=== PATIENT | male | born 1955 | race Caucasian/White ===

== ENCOUNTER 2017-12-09 02:08 | Inpatient (IN) ==
[2017-12-09] MEDS ORDERED: Ipratropium/Albuterol Neb 3 ML IH ONE (02:11)
[2017-12-09] MEDS ORDERED: methylPREDNISolone 125 MG/2 ML VIAL IVP ONE (02:11)
--- NOTE | 2017-12-09 02:12 | Emergency Department Note ---
Disposition Clinical Impression: Hypoxia Pneumonia Qualifiers: Pneumonia type: due to unspecified organism Laterality: unspecified laterality Lung location: unspecified part of lung Qualified Code(s): J18.9 - Pneumonia, unspecified organism Disposition: Admitted As Inpatient Condition: Good Referrals: NONE,PCP [Non-Partnered Physician] - Forms: ED Satisfaction Letter Time of Disposition: 03:44 General Adult HPI - General Chief complaint: ED Shortness of Breath/Dyspnea Stated complaint: annemarie Time Seen by Provider: 12/09/17 02:10 Source: patient, EMS Mode of arrival: EMS Limitations: no limitations Nursing Notes Reviewed: Yes Vital Signs Reviewed: Yes - History of Present Illness HPI Narrative: 62-year-old male with significant past medical history of COPD presenting to the emergency department with chief complaint of increased shortness of breath and cough. Patient states since he been having increasing shortness of breath. Nonproductive cough. No fevers. Denies chest pain at this time. Denies nausea, vomiting or abdominal pain. Does disclose possible sick contact with influenza. According to EMS arrived they placed him on oxygen. On arrival patient was 88% on 3 L nasal cannula. - Related Data Allergies Allergy/AdvReac Type Severity Reaction Status Date / Time No Known Allergies Allergy Verified 08/26/16 18:11 All systems ED: reviewed and negative except as stated. Respiratory: Reports: cough, dyspnea Past Medical History - Past Medical History Attestation: Yes The following information was validated with the patient. Medical history: Reports: diabetes, hypertension, other Psychiatric history: Reports: no psych history - Social History Smoking Status: Current every day smoker Smokeless Tobacco Status: No Alcohol use: Reports: none Drug use: Reports: none Physical Exam - General Limitations: no limitations General appearance: alert, in no apparent distress - Head Head exam: atraumatic, normocephalic, normal inspection - Eye Eye exam: Present: normal appearance. Absent: scleral icterus, conjunctival injection - ENT ENT exam: normal exam, normal oropharynx, mucous membranes moist - Neck Neck exam: Present: normal inspection, full ROM. Absent: tenderness, meningismus - Chest Chest inspection: Present: normal inspection, symmetric chest wall rise. Absent : tenderness, rash - Respiratory Respiratory exam: Present: other (Diffuse rhonchi on examination) - Cardiovascular Cardiovascular exam: Present: regular rate, normal rhythm, normal heart sounds - Abdominal Exam Abdominal exam: Present: soft, Non-Tender. Absent: distention, guarding, rebound - Extremities Exam Extremities exam: Present: normal inspection, full ROM - Neurological Exam Neurological exam: Present: alert, oriented X3 - Psychiatric Psychiatric exam: Present: normal affect, normal mood - Skin Skin exam: Present: warm, intact Course Course Narrative: 62-year-old male presenting with shortness of breath and dyspnea. Patient was 80% on 3 L nasal cannula. Mid 90%. On 4 L nasal cannula. We will obtain basic laboratory analysis along with chest x-ray. We will provide the patient with steroids and breathing treatments. Patient is alert and oriented times in the room. Mildly hypoxic but other vital signs stable. Disposition pending results. Patient agrees with this plan. - Reevaluation(s) Reevaluation #1: Patient's laboratory analysis showed increased creatinine, elevated BNP, elevated troponin. Troponin chest chest x-ray does show multifocal pneumonia. Zithromax and Levaquin at this time. We will plan to admit the patient for pneumonia and hypoxia. Patient is alert and oriented 3 with stable vital signs. He agrees. I spoke with the hospitalist supervisor mold construction Dr. Reece who agrees to accept the patient at this time. He would like a CT non contrast of the chest before the patient is brought to the floor. Patient agrees with this plan. Vital Signs Temperature 99.9 F H 12/09/17 02:10 Pulse Rate 72 12/09/17 02:10 Respiratory Rate 18 12/09/17 02:10 Blood Pressure 216/113 12/09/17 02:10 O2 Sat by Pulse Oximetry 94 12/09/17 02:10 Temperature 99.9 F H 12/09/17 02:10 Pulse Rate 76 12/09/17 03:25 Respiratory Rate 18 12/09/17 03:25 Blood Pressure 209/96 12/09/17 03:25 O2 Sat by Pulse Oximetry 95 12/09/17 03:25 Oxygen Delivery Oxygen Delivery Nasal Cannula Medical Decision Making - Lab Data Result diagrams: 12/09/17 02:30 12/09/17 02:30 Lab Results 12/09/17 12/09/17 12/09/17 Range/Units 02:30 02:30 02:30 WBC 8.5 (4.3-11.1) K/mcL RBC 4.26 (4.19-5.50) M/mcL Hgb 11.1 L (12.9-16.9) g/dL Hct 36.1 L (37.5-50.1) % MCV 84.7 (83.0-100.0) fL MCH 26.1 L (28.0-33.3) pg MCHC 30.7 L (31.6-35.5) g/dL RDW 17.3 H (11.5-14.5) % Plt Count 211 (140-400) K/mcL MPV 10.4 (9.4-12.4) fL Immature Gran % 0.6 (0-4) % Seg Neutrophils % 82.3 % Lymphocytes % 12.3 % Monocytes % 4.7 % Eosinophils % 0.0 % Basophils % 0.1 % Neutrophils # 7.0 (1.6-8.9) K/mcL Lymphocytes # 1.0 (0.6-4.6) K/mcL Monocytes # 0.4 (0.0-1.3) K/mcL Eosinophils # 0.0 (0.0-0.6) K/mcL Basophils # 0.0 (0.0-0.2) K/mcL Sodium 137 (136-145) mEq/L Potassium 3.4 L (3.5-5.1) mEq/L Chloride 102 (98-107) mEq/L Carbon Dioxide 28 (23-29) mEq/L BUN 21 (8-23) mg/dL Creatinine 1.45 H (0.70-1.30) mg/dL Est GFR ( Amer) 60 (> 60) Est GFR (Non-Af Amer) 49 L (> 60) BUN/Creatinine Ratio 14 (6-26) Glucose 131 H (70-105) mg/dL Calculated Osmolality 289 (280-300) Lactic Acid 0.9 (0.5-2.2) mmol/L Calcium 9.2 (8.6-10.3) mg/dL Troponin I 0.05 H* (< 0.04) ng/mL B-Natriuretic Peptide (Less than 100) pg/mL 12/09/17 Range/Units 02:30 WBC (4.3-11.1) K/mcL RBC (4.19-5.50) M/mcL Hgb (12.9-16.9) g/dL Hct (37.5-50.1) % MCV (83.0-100.0) fL MCH (28.0-33.3) pg MCHC (31.6-35.5) g/dL RDW (11.5-14.5) % Plt Count (140-400) K/mcL MPV (9.4-12.4) fL Immature Gran % (0-4) % Seg Neutrophils % % Lymphocytes % % Monocytes % % Eosinophils % % Basophils % % Neutrophils # (1.6-8.9) K/mcL Lymphocytes # (0.6-4.6) K/mcL Monocytes # (0.0-1.3) K/mcL Eosinophils # (0.0-0.6) K/mcL Basophils # (0.0-0.2) K/mcL Sodium (136-145) mEq/L Potassium (3.5-5.1) mEq/L Chloride (98-107) mEq/L Carbon Dioxide (23-29) mEq/L BUN (8-23) mg/dL Creatinine (0.70-1.30) mg/dL Est GFR ( Amer) (> 60) Est GFR (Non-Af Amer) (> 60) BUN/Creatinine Ratio (6-26) Glucose (70-105) mg/dL Calculated Osmolality (280-300) Lactic Acid (0.5-2.2) mmol/L Calcium (8.6-10.3) mg/dL Troponin I (< 0.04) ng/mL B-Natriuretic Peptide 695 H (Less than 100) pg/mL - EKG Data EKG #1 EKG attestation: Yes I reviewed and interpreted this EKG. EKG results narrative: Sinus rhythm. Left axis deviation. 71 bpm. GA interval 160, QRS 118, QTC 426. T-wave inversion in V5 and V6. No signs of acute ST segment elevation or ischemia. Compared to previous EKG completed on 12/30/2008 no significant changes noted
[2017-12-09] MEDS ORDERED: Levofloxacin 750 MG/150 ML 750 MG/150 ML BAG IVPB ONE (02:49)
[2017-12-09] MEDS ORDERED: Azithromycin 500 MG in D5% in Water 250 ML IVPB ONE (02:49)
[2017-12-09] MEDS ORDERED: *HR* Metoprolol 5 MG/5 ML VIAL IVP ONE (02:51)
[2017-12-09 02:52] LABS: Basophils % 0.1 %; Hematocrit 36.1 % (37.5-50.1); Hemoglobin 11.1 g/dL (12.9-16.9); Immature Granulocytes % 0.6 % (0-4); Lymphocytes % 12.3 %; Mean Corpuscular HGB Conc 30.7 g/dL (31.6-35.5); Mean Corpuscular Hemoglobin 26.1 pg (28.0-33.3); Mean Corpuscular Volume 84.7 fL (83.0-100.0); Mean Platelet Volume 10.4 fL (9.4-12.4); Monocytes # 0.4 K/mcL (0.0-1.3); Monocytes % 4.7 %; Platelet Count 211 K/mcL (140-400); Red Blood Count 4.26 M/mcL (4.19-5.50); Red Cell Distribution Width 17.3 % (11.5-14.5); Segmented Neutrophils % 82.3 %
--- NOTE | 2017-12-09 02:54 | Emergency Department Note ---
START Narrative - START START: I examined this patient and my medical decision-making was reviewed with the Resident Physician. I agree with the documented findings, disposition and treatment plan as described except to the extent set forth below. 62 year old male presents to the ED with hx of COPD and states that he has been exposed to the infleunza and has been experincing increased cough and subjective chills and fevers at home. He was 88% on 3LNC and now 100% on 4LNC and brething treatment have been given with steroids. He has mulitfocal pnuemoina on CXR. WE will test him for influenze and admit to medicine.
[2017-12-09 03:14] LABS: Calcium 9.2 mg/dL (8.6-10.3); Potassium 3.4 mEq/L (3.5-5.1)
[2017-12-09 03:16] LABS: Troponin I 0.05 ng/mL (< 0.04)
[2017-12-09] MEDS ORDERED: Aspirin 325 MG TABLET PO ONE (03:16)
[2017-12-09] MEDS ORDERED: 0.9 % Sodium Chloride 500 ML IVC ONE (03:22)
[2017-12-09] MEDS ORDERED: Acetaminophen 325 MG TABLET PO PRN (04:06)
[2017-12-09] MEDS ORDERED: Naloxone 0.4 MG/ML INJ IVP PRN (04:06)
[2017-12-09] MEDS ORDERED: Tuberculin Skin Test (PPD) 5 TUB/0.1 ML VIAL ID ONE (04:19)
--- NOTE | 2017-12-09 07:33 | Internal Med History&Physical ---
<Yefri Harding - Last Filed: 12/09/17 17:51> Date of Encounter: 12/09/17 Time of Encounter: 07:32 Assessment and Plan (1) Multifocal pneumonia Current visit: Yes Status: Acute Patient presented with cough and shortness of breath with hypoxia Chest x-ray demonstrated multifocal pneumonia. Chest CT demonstrated innumerable ill-defined groundglass nodular opacities throughout both lungs. Received one-time dose of Zithromax and Levaquin in the ER. Plan: -Levaquin 750 mg IV daily; will adjust antibiotic tx based on CX results -Isolation Tuberculin skin test, QuantiFERON-TB Gold, Procalcitonin, acid-fast smear and CX obtained -Blood CX and Sputum CX with Gram stain -O2 via NC -Respiratory panel (2) Respiratory failure with hypoxia Current visit: Yes Status: Acute Known history of COPD; does not use O2 at home -No shortness of breath at baseline -Has an albuterol inhaler that he rarely uses -O2 sat was 88% when EMS arrived -Received one time dose of solumedrol in the ED -Continue O2 via [place] Qualifiers: Qualified Code(s): J96.91 - Respiratory failure, unspecified with hypoxia (3) MARIO (acute kidney injury) Current visit: Yes Status: Acute Patient has an elevated creatinine at 1.45. -No known history of CKD. -Reported history of bladder injury; rule out postrenal cause of a cat. Plan: -Retroperitoneal ultrasound -NS at 100 ml/h (4) Hypertension Current visit: Yes Status: Acute Patient presented with elevated blood pressure of 216/113. -Patient has a known history of hypertension. -Patients last blood pressure was 195/98. Plan: -Hydralazine 25 mg by mouth 3 times a day -Lisinopril 20 mg by mouth daily -Amlodipine 10 mg by mouth daily -Atenolol 100 mg by mouth daily Qualifiers: Qualified Code(s): I10 - Essential (primary) hypertension (5) Elevated troponin Current visit: Yes Status: Acute Patient presented with elevated troponin at 0.05. -EKG showed no ischemic changes. -Trend x2 (6) Diabetes mellitus Current visit: Yes Status: Acute Insulin sliding scale Qualifiers: Qualified Code(s): E11.9 - Type 2 diabetes mellitus without complications (7) Hyperlipidemia Current visit: Yes Status: Acute TriCor 48 mg by mouth daily -Lovastatin 20 mg by mouth at bedtime Qualifiers: Qualified Code(s): E78.5 - Hyperlipidemia, unspecified (8) COPD (chronic obstructive pulmonary disease) Current visit: Yes Status: Acute Albuterol sulfate inhaler 2 puffs inhaled every 4 hours Qualifiers: Qualified Code(s): J44.9 - Chronic obstructive pulmonary disease, unspecified (9) Anemia Current visit: Yes Status: Acute Hemoglobin 11.1 -Iron studies -Will continue to monitor Qualifiers: Qualified Code(s): D64.9 - Anemia, unspecified (10) DVT prophylaxis Current visit: Yes Status: Acute Heparin 5000 subcutaneous every 12. (11) Hyperlipidemia Current visit: Yes Status: Acute Qualifiers: Qualified Code(s): E78.5 - Hyperlipidemia, unspecified Internal Medicine - H&P: HPI Admitted From: Home History of present illness: Mr. Sewell is a 62 year old male with a past medical history of COPD, hypertension, diabetes mellitus who presented to the emergency department with chief complaint of shortness of breath cough since . Cough is nonproductive. Denies fever, chest pain, nausea, vomiting, or abdominal pain. Denies sick contacts. Was placed on oxygen when EMS arrived. Was 88% on 3 L via nasal cannula on arrival. Upon arrival, patient had an elevated temperature 99.9. Blood pressure was also elevated at 216/113. Other vital signs were within normal limits. Chest x-ray demonstrated multifocal pneumonia. CT scan demonstrated innumerable ill-defined groundglass nodular opacities throughout both lungs, right greater than left. Laboratory analysis demonstrated elevated creatinine at 1.45, elevated troponin 0.05, CRP of 156, BNP 695, potassium 3.4. Patient was given a one-time dose of Zithromax, Levaquin, and Solu-Medrol. He was also given a one-time dose of Lopressor for blood pressure control. The following were obtained: Acid-fast smear and culture, sputum culture with Gram stain, blood culture, prolactin, QuantiFERON- TB Gold. Patient was seen and examined at bedside this morning. Reports that his shortness of breath has improved. He denies having any fever or chills. He is currently on 3.5 L of oxygen via nasal cannula. No cough at this time. Patient does admit to having night sweats at least 1 time in the last week. Admits to having some chest discomfort that has been present since . Located in the center of his chest, described as the sensation of someone pressing in on his sternum. Past Med Surg Social Fam HX - Past Medical History Medical history: diabetes, hypertension, other Psychiatric history: no psych history - Social History Smoking Status: Current every day smoker Smokeless Tobacco Status: No Alcohol use: none Drug use: none - Family History Mother Living Status: Cause of : old age Hx Family Cardiac Disorders: Yes (dad heart attack) Hx Family Respiratory Disorders: No Hx Family Cancer: Yes (brother colon) Hx Family GI Disorders: No Hx Family Genitourinary Disorders: No Hx Family Endocrine Disorder: No Hx Family Musculoskeletal Disorders: No Hx Family Neuromuscular Disorders: No Hx Family Neurologic Disorders: No Hx Family HEENT Disorders: No Hx Family Autoimmune Disorders: No Hx Family Reproductive Disorders: No Hx Family Psychosocial Disorders: No Hx Family Medical Disorders: No Internal Medicine - H&P: Meds Albuterol Sulfate [Albuterol Inhaler] 2 puff IH Q4H 12/09/17 [History] Amlodipine Besylate [Amlodipine Besylate] 10 mg PO DAILY 12/09/17 [History] Atenolol [Atenolol] 100 mg PO DAILY 12/09/17 [History] Dexlansoprazole [Dexilant] 60 mg PO DAILY 12/09/17 [History] Fenofibrate Nanocrystallized [Tricor] 48 mg PO DAILY 12/09/17 [History] Furosemide [Lasix] 40 mg PO DAILY 12/09/17 [History] Gabapentin [Neurontin] 300 mg PO TID 12/09/17 [History] Lisinopril [Zestril] 20 mg PO DAILY 12/09/17 [History] Lovastatin [Mevacor] 20 mg PO HS 12/09/17 [History] Meloxicam [Meloxicam] 7.5 mg PO DAILY 12/09/17 [History] Pioglitazone [Actos] 15 mg PO DAILY 12/09/17 [History] Tamsulosin [Flomax] 0.4 mg PO DAILY 12/09/17 [History] Tizanidine HCl [Tizanidine HCl] 2 mg PO TID 12/09/17 [History] hydrALAZINE [HydrALAZINE] 25 mg PO TID 12/09/17 [History] 3 Allergy/AdvReac Type Severity Reaction Status Date / Time No Known Allergies Allergy Verified 12/09/17 10:21 All Systems PM: A 10-system review of systems was performed and is negative for pertinent findings except as documented above in the HPI. - Constitutional Constitutional: no chills, no fever(s), no night sweats - EENT Eyes: no change in vision, no discharge, no pain, no photophobia Ears: no ear discharge, no ear pain, no tinnitus Nose, mouth and throat: no dysphagia, no nasal discharge, no neck pain, no sore throat - Cardiovascular Cardiovascular ROS IM: chest pain, no diaphoresis, no dyspnea, no lightheadedness, no palpitations, no syncope - Respiratory Respiratory: cough, wheezing, no dyspnea, no excessive phlegm production - Gastrointestinal Gastrointestinal: no abdominal pain, no diarrhea, no hematemesis, no hematochezia, no melena, no nausea, no vomiting - Musculoskeletal Musculoskeletal ROS IM: no numbness, no tingling - Integumentary Integumentary IM: no rash, no unusual bruising - Neurological Neurological ROS: no confusion, no convulsions, no focal weakness, no numbness, no tingling, no tremor(s) - Hematologic/Lymphatic Hematologic/Lymphatic: no easy bruising - Constitutional Vitals: Temp Pulse Resp BP Pulse Ox 98.9 F 73 16 195/98 99 12/09/17 06:48 12/09/17 06:48 12/09/17 06:48 12/09/17 06:48 12/09/17 06:48 - Head Head exam: Present: atraumatic, normocephalic - Eye Eye exam: Present: PERRL, conjuntiva pink, sclera anicteric Pupils: Present: PERRL - Neck Neck exam general surgery: Present: supple, trachea midline. Absent: lymphadenopathy - Respiratory Respiratory exam: Present: decreased breath sounds, rales, rhonchi. Absent: accessory muscle use, wheezes Additional comments: Diffuse rales and rhonchi bilaterally - Cardiovascular Cardiovascular exam: Present: RRR, +S1, +S2. Absent: diastolic murmur, gallop, rubs, systolic murmur - GI/Abdominal GI/Abdominal exam: Present: normal bowel sounds, soft, no peritoneal signs. Absent: distended, tenderness - Extremities Exam Extremities exam: Present: warm, radial pulses palpable and symmetrical. Absent : calf tenderness, cyanotic, pedal edema - Neurological Exam Neurological exam: Present: CN II-XII intact, oriented X3, no focal deficits. Absent: pronater drift, facial droop, speech deficit - Skin Skin exam: Present: dry, intact Internal Med - H&P Results - Labs CBC & Chem 7: 12/09/17 02:30 12/09/17 02:30 <Ernesto Weiss Mark - Last Filed: 12/10/17 12:19> Date of Encounter: 12/10/17 Internal Medicine - H&P: HPI History of present illness: Mr. Sewell is a 62 year old male All Systems PM: A 10-system review of systems was performed and is negative for pertinent findings except as documented above in the HPI. - Constitutional Vitals: Temp Pulse Resp BP Pulse Ox 97.9 F 56 18 142/74 92 12/10/17 12:00 12/10/17 12:00 12/10/17 12:00 12/10/17 12:00 12/10/17 12:00 Internal Med - H&P Results - Labs CBC & Chem 7: 12/10/17 03:43 12/10/17 03:43 Labs: Short CBC 12/10/17 Range/Units 03:43 WBC 10.4 (4.3-11.1) K/mcL Hgb 10.7 L (12.9-16.9) g/dL Hct 34.4 L (37.5-50.1) % Plt Count 223 (140-400) K/mcL Neutrophils # 8.6 (1.6-8.9) K/mcL BMP 12/10/17 03:43 Sodium 141 Potassium 3.3 L Chloride 108 H Carbon Dioxide 25 BUN 28 H Creatinine 1.15 Glucose 153 H Calcium 9.4 - Impressions ITS Impressions Retroperitoneum Ultrasound 12/09/17 14:00 IMPRESSION: Unremarkable ultrasound of the kidneys and urinary bladder. No hydronephrosis. D/ / 12/09/2017 15:40:32 Lashae Menjivar MD / [email or web address] Interpreting Provider: Lashae Menjivar MD - Attending Attestation I examined this patient and my medical decision-making was reviewed with the Resident Physician. I agree with the documented findings, disposition and treatment plan as described except to the extent set forth below.
[2017-12-09] MEDS: *HR* Heparin 5,000 UNIT/ML VIAL SQ SCH ×2 (10:40→17:12)
[2017-12-09] MEDS: 0.9 % Sodium Chloride 1,000 ML IVC SCH (10:42)
[2017-12-09] MEDS: amLODIPine 5 MG TABLET PO SCH (11:59)
[2017-12-09] MEDS: hydrALAZINE 25 MG TABLET PO SCH ×3 (11:59→22:08)
[2017-12-09] MEDS: Lisinopril 20 MG TABLET PO SCH (17:12)
--- NOTE | 2017-12-09 20:23 | Electrocardiograph Report ---
[place] [id number] Test Date: 2017-12-09 Pat Name: Garfield Sewell Department: 104 Room: [id number] Gender: M [employer]: : [id number] Requested By: Lillie Curran Order Number: [id number] Reading MD: Luis Guardado MD Measurements Intervals [place] Rate: 71 P: 22 [place]: 160 QRS: -39 QRSD: 118 T: 135 QT: 404 QTc: 426 Interpretive Statements SINUS RHYTHM LEFT ATRIAL ENLARGEMENT MARKED LEFT AXIS DEVIATION LEFT VENTRICULAR HYPERTROPHY AND ST-T CHANGE BASELINE ARTIFACT Electronically Signed On 12-09-2017 20:21:23 EDT by Luis Guardado MD
[2017-12-09] MEDS: niCARdipine 40 MG/200 ML MLS IVC SCH (22:08)
[2017-12-09 22:45] LABS: Adenovirus Not Detected (Not Detect); Bordetella Pertussis Not Detected (Not Detect); Chlamydophila pneumoniae Not Detected (Not Detect); Coronavirus 229E Not Detected (Not Detect); Coronavirus HKU1 Not Detected (Not Detect); Coronavirus NL63 Not Detected (Not Detect); Coronavirus OC43 Not Detected (Not Detect); Human Metapneumovirus Not Detected (Not Detect); Human Rhinovirus/Enterovirus Not Detected (Not Detect); Influenza A Subtype 2009 H1 Not Detected (Not Detect); Influenza A Untypeable Not Detected (Not Detect); Influenza B ***DETECTED*** (Not Detect); Mycoplasma pneumoniae Not Detected (Not Detect); Parainfluenza Virus 1 Not Detected (Not Detect); Parainfluenza Virus 2 Not Detected (Not Detect); Parainfluenza Virus 3 Not Detected (Not Detect); Parainfluenza Virus 4 Not Detected (Not Detect); Respiratory Syncytial Virus Not Detected (Not Detect)
[2017-12-10] MEDS: 0.9 % Sodium Chloride 1,000 ML IVC SCH ×2 (01:25→08:39)
[2017-12-10] MEDS: niCARdipine 40 MG/200 ML MLS IVC SCH ×3 (01:35→08:30)
[2017-12-10] MEDS: *HR* Heparin 5,000 UNIT/ML VIAL SQ SCH ×2 (04:48→18:49)
[2017-12-10 05:09] LABS: Basophils % 0.1 %; Hematocrit 34.4 % (37.5-50.1); Hemoglobin 10.7 g/dL (12.9-16.9); Immature Granulocytes % 0.4 % (0-4); Lymphocytes # 1.2 K/mcL (0.6-4.6); Mean Corpuscular HGB Conc 31.1 g/dL (31.6-35.5); Mean Corpuscular Hemoglobin 26.4 pg (28.0-33.3); Mean Corpuscular Volume 84.7 fL (83.0-100.0); Mean Platelet Volume 10.8 fL (9.4-12.4); Monocytes # 0.5 K/mcL (0.0-1.3); Monocytes % 4.6 %; Neutrophils # 8.6 K/mcL (1.6-8.9); Platelet Count 223 K/mcL (140-400); Red Blood Count 4.06 M/mcL (4.19-5.50); Red Cell Distribution Width 17.2 % (11.5-14.5); Segmented Neutrophils % 82.9 %
[2017-12-10 05:24] LABS: BUN/Creatinine Ratio 24 (6-26); Blood Urea Nitrogen 28 mg/dL (8-23); Calcium 9.4 mg/dL (8.6-10.3); Carbon Dioxide 25 mEq/L (23-29); Chloride 108 mEq/L (98-107); Glucose 153 mg/dL (70-105); Osmolality,Calculated 301 (280-300); Potassium 3.3 mEq/L (3.5-5.1); Sodium 141 mEq/L (136-145); eGFR For African Americans > 60 (> 60); eGFR For Non-African Americans > 60 (> 60)
--- NOTE | 2017-12-10 07:35 | Internal Med Progress Note ---
<Yefri Harding - Last Filed: 12/10/17 14:56> Date of Encounter: 12/10/17 Time of Encounter: 09:00 - Assessment and plan (1) Multifocal pneumonia Current Visit: Yes Status: Acute Assessment and plan: Patient presented with cough and shortness of breath with hypoxia Chest x-ray demonstrated multifocal pneumonia. Chest CT demonstrated innumerable ill-defined groundglass nodular opacities throughout both lungs. Received one-time dose of Zithromax and Levaquin in the ER. Patient is influenza B + Plan: -Levaquin 750 mg IV daily; will adjust antibiotic tx based on CX results -Isolation Tuberculin skin test, QuantiFERON-TB Gold, Procalcitonin, acid-fast smear and CX obtained -Blood CX and Sputum CX with Gram stain -O2 via NC -Infectious disease consulted (2) Respiratory failure with hypoxia Current Visit: Yes Status: Acute Assessment and plan: Known history of COPD; does not use O2 at home -No shortness of breath at baseline -Has an albuterol inhaler that he rarely uses -O2 sat was 88% when EMS arrived -Received one time dose of solumedrol in the ED -Continue O2 via SD Qualifiers: Qualified Code(s): J96.91 - Respiratory failure, unspecified with hypoxia (3) MARIO (acute kidney injury) Current Visit: Yes Status: Acute Assessment and plan: Patient has an elevated creatinine at 1.45. -No known history of CKD. -Reported history of bladder injury; rule out postrenal cause of a cat. Plan: -Retroperitoneal ultrasound -NS at 100 ml/h (4) Hypertension Current Visit: Yes Status: Acute Assessment and plan: Patient presented with elevated blood pressure of 216/113. -Patient has a known history of hypertension. -Patients last blood pressure was 195/98. Plan: -Hydralazine 25 mg by mouth 3 times a day -Lisinopril 20 mg by mouth daily -Amlodipine 10 mg by mouth daily -Atenolol 100 mg by mouth daily Qualifiers: Qualified Code(s): I10 - Essential (primary) hypertension (5) Elevated troponin Current Visit: Yes Status: Acute Assessment and plan: Patient presented with elevated troponin at 0.05. -EKG showed no ischemic changes. -Trend x2 (6) Diabetes mellitus Current Visit: Yes Status: Acute Assessment and plan: Insulin sliding scale Qualifiers: Qualified Code(s): E11.9 - Type 2 diabetes mellitus without complications (7) Hyperlipidemia Current Visit: Yes Status: Acute Assessment and plan: TriCor 48 mg by mouth daily -Lovastatin 20 mg by mouth at bedtime Qualifiers: Qualified Code(s): E78.5 - Hyperlipidemia, unspecified (8) COPD (chronic obstructive pulmonary disease) Current Visit: Yes Status: Acute Assessment and plan: Albuterol sulfate inhaler 2 puffs inhaled every 4 hours Qualifiers: Qualified Code(s): J44.9 - Chronic obstructive pulmonary disease, unspecified (9) Anemia Current Visit: Yes Status: Acute Assessment and plan: Hemoglobin 11.1 -Iron studies -Will continue to monitor Qualifiers: Qualified Code(s): D64.9 - Anemia, unspecified (10) DVT prophylaxis Current Visit: Yes Status: Acute Assessment and plan: Heparin 5000 subcutaneous every 12. (11) Hypertensive emergency Current Visit: Yes Status: Acute Assessment and plan: Patient presented with elevated blood pressure of 216/113. Hypertensive emergency based on elevated Cr and troponin Resolved; BP today was 147/72 Plan: -Hydralazine 25 mg by mouth 3 times a day -Lisinopril 20 mg by mouth daily -Amlodipine 10 mg by mouth daily -Atenolol 100 mg by mouth daily - Constitutional Vitals: Temp Pulse Resp BP Pulse Ox 98.1 F 66 20 142/69 90 12/10/17 04:42 12/10/17 06:00 12/10/17 04:42 12/10/17 06:00 12/10/17 04:42 General appearance: Present: A&O X 3, pleasant, answers questions appropriately - Head Head exam: Present: atraumatic, normocephalic - Eye Eye exam: Present: PERRL, conjuntiva pink, sclera anicteric Pupils: Present: PERRL - Neck Neck exam general surgery: Present: supple, trachea midline. Absent: lymphadenopathy - Respiratory Respiratory exam: Present: decreased breath sounds, rales, rhonchi. Absent: accessory muscle use, wheezes - Cardiovascular Cardiovascular exam: Present: RRR, +S1, +S2. Absent: diastolic murmur, gallop, rubs, systolic murmur - Extremities Exam Extremities exam: Present: warm, radial pulses palpable and symmetrical. Absent : calf tenderness, cyanotic, pedal edema - Neurological Exam Neurological exam: Present: CN II-XII intact, oriented X3, no focal deficits. Absent: pronater drift, facial droop, speech deficit - Skin Skin exam: Present: dry, intact Internal Medicine: Result - Labs CBC & Chem 7: 12/10/17 03:43 12/10/17 03:43 Labs: Short CBC 12/10/17 Range/Units 03:43 WBC 10.4 (4.3-11.1) K/mcL Hgb 10.7 L (12.9-16.9) g/dL Hct 34.4 L (37.5-50.1) % Plt Count 223 (140-400) K/mcL Neutrophils # 8.6 (1.6-8.9) K/mcL BMP 12/10/17 03:43 Sodium 141 Potassium 3.3 L Chloride 108 H Carbon Dioxide 25 BUN 28 H Creatinine 1.15 Glucose 153 H Calcium 9.4 Cardiac Enzymes 12/09/17 Range/Units 09:36 Troponin I 0.05 H* (< 0.04) ng/mL - Impressions Impressions Retroperitoneum Ultrasound 12/09/17 14:00 IMPRESSION: Unremarkable ultrasound of the kidneys and urinary bladder. No hydronephrosis. D/ / 12/09/2017 15:40:32 Lashae Menjivar MD / clair Interpreting Provider: Lashae Menjivar MD Consult Discharge Plan - Plan Referrals: Sandi Vieira, [facility] [Advanced Practice Nurse] - 12/20/17 12:30 pm <Khadar Aquino - Last Filed: 12/10/17 15:41> Date of Encounter: 12/10/17 - Assessment and plan (1) Acute and chronic respiratory failure Current Visit: Yes Status: Acute (2) Influenza B Current Visit: Yes Status: Acute (3) Multifocal pneumonia Current Visit: Yes Status: Acute (4) MARIO (acute kidney injury) Current Visit: Yes Status: Acute (5) COPD (chronic obstructive pulmonary disease) Current Visit: Yes Status: Acute Qualifiers: Qualified Code(s): J44.9 - Chronic obstructive pulmonary disease, unspecified (6) DVT prophylaxis Current Visit: Yes Status: Acute (7) Diabetes mellitus Current Visit: Yes Status: Acute Qualifiers: Qualified Code(s): E11.9 - Type 2 diabetes mellitus without complications (8) Elevated troponin Current Visit: Yes Status: Acute (9) Hyperlipidemia Current Visit: Yes Status: Acute Qualifiers: Qualified Code(s): E78.5 - Hyperlipidemia, unspecified (10) Hypertensive emergency Current Visit: Yes Status: Acute (11) Respiratory failure with hypoxia Current Visit: Yes Status: Acute Qualifiers: Qualified Code(s): J96.91 - Respiratory failure, unspecified with hypoxia - Constitutional Vitals: Temp Pulse Resp BP Pulse Ox 97.9 F 56 18 142/74 92 12/10/17 12:00 12/10/17 12:00 12/10/17 12:00 12/10/17 12:00 12/10/17 12:00 Internal Medicine: Result - Labs CBC & Chem 7: 12/10/17 03:43 12/10/17 03:43 Labs: Short CBC 12/10/17 Range/Units 03:43 WBC 10.4 (4.3-11.1) K/mcL Hgb 10.7 L (12.9-16.9) g/dL Hct 34.4 L (37.5-50.1) % Plt Count 223 (140-400) K/mcL Neutrophils # 8.6 (1.6-8.9) K/mcL BMP 12/10/17 03:43 Sodium 141 Potassium 3.3 L Chloride 108 H Carbon Dioxide 25 BUN 28 H Creatinine 1.15 Glucose 153 H Calcium 9.4 - Impressions Impressions Retroperitoneum Ultrasound 12/09/17 14:00 IMPRESSION: Unremarkable ultrasound of the kidneys and urinary bladder. No hydronephrosis. D/ / 12/09/2017 15:40:32 Lashae Menjivar MD / lgray Interpreting Provider: Lashae Menjivar MD - Attending Attestation I examined this patient and my medical decision-making was reviewed with the Resident Physician. I agree with the documented findings, disposition and treatment plan as described except to the extent set forth below. 62 M with HTN emergency, multifocal pneumonia, acute resp failure possibly due to pulmonary edema as well as multifocal pnuemonia BP is better controlled now Awaiting AFB smear, patient is very minimal risk for TB, consult infectious disease, in the meantime, continue current management and hoe meds, including lasix, discontinue IVF. Renal USS is unremarkable, obtain ECHO Rest as in resident physician's documentation
[2017-12-10] MEDS ORDERED: Furosemide 40 MG/4 ML VIAL IVP ONE (07:41)
[2017-12-10] MEDS ORDERED: Furosemide 40 MG/4 ML VIAL ONE (07:43)
[2017-12-10] MEDS: amLODIPine 5 MG TABLET PO SCH (08:29)
[2017-12-10] MEDS: Lisinopril 20 MG TABLET PO SCH (08:29)
[2017-12-10] MEDS: hydrALAZINE 25 MG TABLET PO SCH ×3 (08:29→20:28)
[2017-12-10] MEDS ORDERED: Lisinopril 20 MG TABLET PO SCH (09:00)
[2017-12-10] MEDS ORDERED: Levofloxacin 750 MG/150 ML 750 MG/150 ML BAG IVPB SCH (09:00)
--- NOTE | 2017-12-10 15:09 | Infectious Disease Consult ---
Date of Encounter: 12/10/17 Time of Encounter: 15:04 Assessment and Plan (1) Acute and chronic respiratory failure Status: Acute Assessment and plan: 62yo male with known COPD(non-oxygen dependent) and everyday smoker admitted 08/2018 with dyspnea requiring oxygen. CT demonstrates innumerable ill-defined ground glass nodular opacities throughout both lungs. - Influenza B positive on PCR, negative on flu swab. Patient requiring increased oxygen demand Suspected secondary to Viral pneumonia Qualifiers: Respiratory failure complication: hypoxia Qualified Code(s): J96.21 - Acute and chronic respiratory failure with hypoxia (2) Multifocal pneumonia Status: Acute Assessment and plan: Multifocal pneumonia likely viral in etiology - CT demonstrates innumerable ill-defined ground glass nodular opacities throughout both lungs. - Procalcitonin 0.20 which supports more likely viral compared to bacterial etiology - Patient in Droplet precautions for possible TB, low risk factors, Tuberculin skin test, QuantiFERON-TB Gold, acid-fast smear and CX obtained. Will await Tuberculin skin test for further assessment. - Suspect do to Influenza B at this time will discontinue Antibiotics and start Tamiflu (3) Influenza B Status: Acute Assessment and plan: Influenza B positive on PCR, negative on flu swab. - Patient is symptomatic with Acute Respiratory failure, subjective fevers, chills and diaphoresis Plan: Tamiflu 75mg BID (5 days duration) Infectious Disease HPI - Data of Consult Consult date: 12/10/17 Requesting Physician: Eric Valdez Primary Care Provider: Mando An DO - Consult Narrative Reason for consult: Evaluation and treatment for possible TB History of present illness: Mr. Sewell is a 62 year old male with PMH COPD (non-oxygen dependant), DM, daily smoker admitted on 12/09/17 with dyspnea requiring oxygen and abnormal chest imaging. He developed symptoms of shortness of breath, subjective fevers, chills and night diaphoresis last . His symptoms have progressively worsened with increased sputum production and change in color of sputum from clear to yellow. He denies unintentional weight loss, hemoptysis, previous diagnosis or treatment for TB. He denies any sick contacts, risky exposures, recent incarceration or foreign travel. He lives with his who he says has not been ill and denies any other known sick exposures. He denies any recent hospitalizations or previous hospitalizations for respiratory problems. 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 He retired in 1984 and denies any dust or toxic exposures since. He does not have any birds, significant outdoor exposures or recurrent allergies. At presentation he was found to be hypertensive with BP 210/116, hypoxic requiring NC oxygen with increasing titration and initial CXR demonstrated bilateral airspace disease may represent multifocal PNA or asymmetric pulmonary edema. He was placed on NC oxygen, and received Azithromycin and Levaquin for atypical pnuemonia coverage. After admission his antibiotic coverage was further reduced to Levaquin only. He had QuantiFERON-TB Gold, Procalcitonin, acid-fast smear collected. He received a dose of Lasix for pulmonary edema and were able to reduce his oxygen requirements. Infectious disease was consulted for possible TB work up and antibiotic recommendations. CC: Eric Valdez Past Med Surg Social Fam HX - Past Medical History Medical history: diabetes, hypertension, other Psychiatric history: no psych history - Social History Smoking Status: Current every day smoker Smokeless Tobacco Status: No Alcohol use: none Drug use: none - Family History Mother Living Status: Cause of : old age Hx Family Cardiac Disorders: Yes (dad heart attack) Hx Family Respiratory Disorders: No Hx Family Cancer: Yes (brother colon) Hx Family GI Disorders: No Hx Family Genitourinary Disorders: No Hx Family Endocrine Disorder: No Hx Family Musculoskeletal Disorders: No Hx Family Neuromuscular Disorders: No Hx Family Neurologic Disorders: No Hx Family HEENT Disorders: No Hx Family Autoimmune Disorders: No Hx Family Reproductive Disorders: No Hx Family Psychosocial Disorders: No Hx Family Medical Disorders: No Infectious Disease-CN:Meds Albuterol Sulfate [Albuterol Inhaler] 2 puff IH Q4H 12/09/17 [History] Amlodipine Besylate [Amlodipine Besylate] 10 mg PO DAILY 12/09/17 [History] Atenolol [Atenolol] 100 mg PO DAILY 12/09/17 [History] Dexlansoprazole [Dexilant] 60 mg PO DAILY 12/09/17 [History] Fenofibrate Nanocrystallized [Tricor] 48 mg PO DAILY 12/09/17 [History] Furosemide [Lasix] 40 mg PO DAILY 12/09/17 [History] Gabapentin [Neurontin] 300 mg PO TID 12/09/17 [History] Lisinopril [Zestril] 20 mg PO DAILY 12/09/17 [History] Lovastatin [Mevacor] 20 mg PO HS 12/09/17 [History] Meloxicam [Meloxicam] 7.5 mg PO DAILY 12/09/17 [History] Pioglitazone [Actos] 15 mg PO DAILY 12/09/17 [History] Tamsulosin [Flomax] 0.4 mg PO DAILY 12/09/17 [History] Tizanidine HCl [Tizanidine HCl] 2 mg PO TID 12/09/17 [History] hydrALAZINE [HydrALAZINE] 25 mg PO TID 12/09/17 [History] 3 Allergy/AdvReac Type Severity Reaction Status Date / Time No Known Allergies Allergy Verified 12/09/17 10:21 - Constitutional Constitutional: Present: chills, fatigue, fever(s) - EENT Eyes: Absent: change in vision Nose, mouth and throat: Absent: dizziness - Cardiovascular Cardiovascular: Absent: chest pain, rapid heart rate, slow heart rate, syncope - Respiratory Respiratory: Present: cough, dyspnea, excessive phlegm production, change in phlegm color. Absent: hemoptysis - Gastrointestinal Gastrointestinal: Absent: constipation, diarrhea, nausea, vomiting Exam - Constitutional Vitals: Temp Pulse Resp BP Pulse Ox 97.9 F 56 18 142/74 92 12/10/17 12:00 12/10/17 12:00 12/10/17 12:00 12/10/17 12:00 12/10/17 12:00 - Head Head exam: Present: atraumatic, normocephalic - ENT ENT exam: Present: mucous membranes moist - Neck Neck exam: Present: tenderness, thyromegaly (left sided thyroid nodularity) - Respiratory Respiratory exam: Present: decreased breath sounds (diffuse inspiratory crackles ) - Cardiovascular Cardiovascular exam: Present: RRR, +S1, +S2 - GI/Abdominal GI/Abdominal exam: Present: normal bowel sounds, soft - Extremities Exam Extremities exam: Present: normal inspection Infectious Disease CN: Results - Labs CBC & Chem 7: 12/10/17 03:43 12/10/17 03:43 Cultures: Cultures 12/09/17 20:10 Sputum Culture - Final Sputum Serology: Serology 12/09/17 Range/Units 18:56 Chlamy pneumoniae PCR Not Detected (Not Detect) Adenovirus (PCR) Not Detected (Not Detect) B. pertussis DNA (PCR) Not Detected (Not Detect) B.parapertussis DNA PCR Not Detected (Not Detect) Coronavirus OC43 (PCR) Not Detected (Not Detect) Coronavirus HKU1 (PCR) Not Detected (Not Detect) Coronavirus 229E (PCR) Not Detected (Not Detect) Coronavirus NL63 (PCR) Not Detected (Not Detect) Human Metapneumovir PCR Not Detected (Not Detect) Influenza A (H1) PCR Not Detected (Not Detect) Influ A (H1N1/09) PCR Not Detected (Not Detect) Influenza A (H3) PCR Not Detected (Not Detect) Influenza A Untype (PCR) Not Detected (Not Detect) Influenza Type B (PCR) DETECTED A (Not Detect) M.pneumoniae DNA (PCR) Not Detected (Not Detect) Parainfluenza 1 (PCR) Not Detected (Not Detect) Parainfluenza 2 (PCR) Not Detected (Not Detect) Parainfluenza 3 (PCR) Not Detected (Not Detect) Parainfluenza 4 (PCR) Not Detected (Not Detect) RSV (PCR) Not Detected (Not Detect) Entero/Rhino (PCR) Not Detected (Not Detect) Consult Discharge Plan - Plan Referrals: Sandi Vieira, [facility] [Advanced Practice Nurse] - 12/20/17 12:30 pm - Attending Attestation I examined this patient and my medical decision-making was reviewed with the Resident Physician. I agree with the documented findings, disposition and treatment plan as described except to the extent set forth below. This is an addendum to original report dictated by resident physician. Please refer to residents note for full detail. Patient 62-year-old gentleman with past medical history mentioned below came in to the emergency department complaining of cough sputum production fevers chills weakness and shortness of breath. Patient had no sick contacts. Patient did not have any family contacts that were sick. Patient denies any travel outside the country. Patient denies history of incarceration or exposure to TB. Patient denies any weight loss, hemoptysis, night sweats. Patient states that he feels M was to go home. Patient does have baseline COPD and uses oxygen at home. Since admission patient has been afebrile and had no SIRS criteria. CT shows multilobar pneumonia with nodular presentation. Patient [facility] infectious panel was positive for influenza B virus. Sputum cultures were obtained which showed normal respiratory diego. AFB was also ordered on the sputum, percussive tone and was not suggestive of bacterial infection. Patient also had a QuantiFERON ordered that is pending and a PPD was placed yesterday which reveals no reaction yet. Physical exam is unremarkable for decreased breath sounds universally was some diffuse rhonchi. No wheezing really appreciated. At this point patient CT is likely secondary to influenza B. TB is less likely on the differential and bacterial pneumonia is possible to be superimposed but does not appear that way right now. Especially that the patient has no SIRS criteria and the pro-calcitonin was negative. I will DC the levofloxacin I will start Tamiflu Continue airborne isolation until tomorrow, PPD to be read tomorrow if negative may change patient to droplet isolation area Check urine legionella and pneumococcal antigen If patients CT does not show improvement also consider noninfectious etiology of that Distribution including inflammatory versus vasculitis versus autoimmune versus other. Specially with an ESR of 99
[2017-12-10] MEDS ORDERED: Tuberculin Skin Test (PPD) 5 TUB/0.1 ML VIAL ID ONE (15:25)
[2017-12-10] MEDS: Gabapentin 300 MG CAPSULE PO SCH ×2 (15:50→20:28)
[2017-12-11] MEDS ORDERED: Nitroglycerin 1 INCH/GM PACKET TP ONE (03:14)
[2017-12-11] MEDS: *HR* Heparin 5,000 UNIT/ML VIAL SQ SCH ×2 (05:30→17:55)
[2017-12-11 08:06] LABS: Hemoglobin 10.9 g/dL (12.9-16.9); Mean Corpuscular HGB Conc 30.3 g/dL (31.6-35.5); Mean Corpuscular Hemoglobin 25.5 pg (28.0-33.3); Mean Corpuscular Volume 84.1 fL (83.0-100.0); Mean Platelet Volume 10.3 fL (9.4-12.4); Nucleated Red Blood Cells 0.4 /100 WBC (0); Platelet Count 266 K/mcL (140-400); Red Blood Count 4.28 M/mcL (4.19-5.50); Red Cell Distribution Width 17.4 % (11.5-14.5)
--- NOTE | 2017-12-11 08:07 | Internal Med Progress Note ---
<Yefri Harding - Last Filed: 12/11/17 16:39> Date of Encounter: 12/11/17 Time of Encounter: 08:30 - Assessment and plan (1) Pneumonia Current Visit: Yes Status: Acute Assessment and plan: Patient presented with cough and shortness of breath with hypoxia -Chest x-ray demonstrated multifocal pneumonia. -Chest CT demonstrated innumerable ill-defined groundglass nodular opacities throughout both lungs. -Received one-time dose of Zithromax and Levaquin in the ER. -Patient is influenza B + on PCR; negative on flu swab -Per infectious disease, patient's condition is likely viral in etiology -Pro calcitonin of 0.20 supports viral cause. Plan: -Per the recommendation of infectious disease, discontinue antibiotics. -Start Tamiflu -Tuberculin skin test, QuantiFERON-TB Gold, Procalcitonin, acid-fast smear pending -Tamiflu 75 mg twice a day for influenza B; 5 days' duration Qualifiers: Pneumonia type: due to unspecified organism Laterality: unspecified laterality Lung location: unspecified part of lung Qualified Code(s): J18.9 - Pneumonia, unspecified organism (2) Respiratory failure with hypoxia Current Visit: Yes Status: Acute Assessment and plan: Known history of COPD; does not use O2 at home -No shortness of breath at baseline -Has an albuterol inhaler that he rarely uses -O2 sat was 88% when EMS arrived -Received one time dose of solumedrol in the ED -Continue O2 via NC -Per infectious disease, likely secondary to viral pneumonia. Qualifiers: Qualified Code(s): J96.91 - Respiratory failure, unspecified with hypoxia (3) Influenza B Current Visit: Yes Status: Acute Assessment and plan: Influenza B positive on PCR, negative on flu swab. - Patient is symptomatic with Acute Respiratory failure, subjective fevers, chills and diaphoresis Plan per infectious disease: Tamiflu 75mg BID (5 days duration) (4) Hypertensive emergency Current Visit: Yes Status: Acute Assessment and plan: Patient presented with elevated blood pressure of 216/113. Hypertensive emergency based on elevated Cr and troponin Resolved; BP today was 147/72 Plan: -Hydralazine 25 mg by mouth 3 times a day -Lisinopril 20 mg by mouth daily -Amlodipine 10 mg by mouth daily -Atenolol 100 mg by mouth daily (5) MARIO (acute kidney injury) Current Visit: Yes Status: Acute Assessment and plan: Patient initially had an elevated creatinine at 1.45. -Resolved; creatinine within normal limits today. -Retroperitoneal ultrasound demonstrated no hydronephrosis; unremarkable ultrasound of the kidneys and urinary bladder. -Continue to monitor serum creatinine. (6) Anemia Current Visit: Yes Status: Acute Assessment and plan: Hemoglobin noted to be low -Iron studies -Will continue to monitor Qualifiers: Qualified Code(s): D64.9 - Anemia, unspecified (7) COPD (chronic obstructive pulmonary disease) Current Visit: Yes Status: Acute Assessment and plan: Albuterol sulfate inhaler 2 puffs inhaled every 4 hours Qualifiers: Qualified Code(s): J44.9 - Chronic obstructive pulmonary disease, unspecified (8) DVT prophylaxis Current Visit: Yes Status: Acute Assessment and plan: Heparin 5000 subcutaneous every 12. (9) Diabetes mellitus Current Visit: Yes Status: Acute Assessment and plan: Insulin sliding scale Qualifiers: Qualified Code(s): E11.9 - Type 2 diabetes mellitus without complications (10) Hyperlipidemia Current Visit: Yes Status: Acute Assessment and plan: TriCor 48 mg by mouth daily -Lovastatin 20 mg by mouth at bedtime Qualifiers: Qualified Code(s): E78.5 - Hyperlipidemia, unspecified - Subjective Interval history: Patient was seen and examined at bedside this morning. States that he is feeling much better today. Denies difficulty breathing. No complaints at this time. - Constitutional Vitals: Temp Pulse Resp BP Pulse Ox 97.9 F 64 20 183/96 95 12/11/17 07:58 12/11/17 07:58 12/11/17 07:58 12/11/17 07:58 12/11/17 07:58 General appearance: Present: A&O X 3, pleasant, answers questions appropriately - Head Head exam: Present: atraumatic, normocephalic - Eye Eye exam: Present: PERRL, conjuntiva pink, sclera anicteric Pupils: Present: PERRL - Neck Neck exam general surgery: Present: supple, trachea midline. Absent: lymphadenopathy - Respiratory Respiratory exam: Present: CTAB. Absent: accessory muscle use, rales, rhonchi, wheezes - Cardiovascular Cardiovascular exam: Present: RRR, +S1, +S2. Absent: diastolic murmur, gallop, rubs, systolic murmur - GI/Abdominal GI/Abdominal exam: Present: normal bowel sounds, soft, no peritoneal signs. Absent: distended, tenderness - Extremities Exam Extremities exam: Present: warm, radial pulses palpable and symmetrical. Absent : calf tenderness, cyanotic, pedal edema - Neurological Exam Neurological exam: Present: CN II-XII intact, oriented X3, no focal deficits. Absent: pronater drift, facial droop, speech deficit - Skin Skin exam: Present: dry, intact Internal Medicine: Result - Labs CBC & Chem 7: 12/11/17 07:45 12/11/17 07:45 Consult Discharge Plan - Plan Referrals: Sandi Vieira ORDER TAKERS SUPERVISOR [Advanced Practice Nurse] - 12/20/17 12:30 pm <Khadar Aquino - Last Filed: 12/11/17 16:47> Date of Encounter: 12/11/17 - Assessment and plan (1) Pneumonia Current Visit: Yes Status: Acute Qualifiers: Pneumonia type: due to unspecified organism Laterality: unspecified laterality Lung location: unspecified part of lung Qualified Code(s): J18.9 - Pneumonia, unspecified organism (2) Respiratory failure with hypoxia Current Visit: Yes Status: Acute Qualifiers: Qualified Code(s): J96.91 - Respiratory failure, unspecified with hypoxia (3) Influenza B Current Visit: Yes Status: Acute (4) Hypertensive emergency Current Visit: Yes Status: Acute (5) MARIO (acute kidney injury) Current Visit: Yes Status: Acute (6) Anemia Current Visit: Yes Status: Acute Qualifiers: Qualified Code(s): D64.9 - Anemia, unspecified (7) COPD (chronic obstructive pulmonary disease) Current Visit: Yes Status: Acute Qualifiers: Qualified Code(s): J44.9 - Chronic obstructive pulmonary disease, unspecified (8) DVT prophylaxis Current Visit: Yes Status: Acute (9) Diabetes mellitus Current Visit: Yes Status: Acute Qualifiers: Qualified Code(s): E11.9 - Type 2 diabetes mellitus without complications (10) Hyperlipidemia Current Visit: Yes Status: Acute Qualifiers: Qualified Code(s): E78.5 - Hyperlipidemia, unspecified - Constitutional Vitals: Temp Pulse Resp BP Pulse Ox 97.8 F 57 20 172/131 96 12/11/17 16:23 12/11/17 16:23 12/11/17 16:23 12/11/17 16:23 12/11/17 16:23 Internal Medicine: Result - Labs CBC & Chem 7: 12/11/17 07:45 12/11/17 07:45 Labs: Short CBC 12/11/17 Range/Units 07:45 WBC 7.5 (4.3-11.1) K/mcL Hgb 10.9 L (12.9-16.9) g/dL Hct 36.0 L (37.5-50.1) % Plt Count 266 (140-400) K/mcL Neutrophils # 5.6 (1.6-8.9) K/mcL BMP 12/11/17 07:45 Sodium 132 L Potassium 2.7 L Chloride 116 H Carbon Dioxide 25 BUN 18 Creatinine 0.94 Glucose 141 H Calcium 9.4 - Impressions Impressions Echocardiogram 12/11/17 15:42 Impressions: LVEF 60%. Normal LV chamber size and function. Moderate concentric left ventricular hypertrophy. Moderate left ventricular diastolic dysfunction. Normal right ventricular structure and function. No evidence of pulmonary hypertension. No significant valvular dysfunction. Left Ventricular Wall Motion: Rest Echo Findings All wall segments showed normal motion. Findings: Study Quality * Technically adequate exam. ECG Findings * Normal sinus rhythm. Left Ventricle * LVEF 60%. * Normal LV chamber size and function. * Moderate concentric left ventricular hypertrophy. * Moderate left ventricular diastolic dysfunction. Right Ventricle * Normal right ventricular structure and function. Left Atrium * Moderately dilated left atrium. Right Atrium * Mildly dilated right atrium. Interatrial Septum * Interatrial septum not well evaluated. Aortic Valve * Trileaflet aortic valve with normal function. * No aortic stenosis. * No aortic regurgitation. Mitral Valve * Normal mitral valve structure and function. * No mitral regurgitation. * No mitral stenosis. Tricuspid Valve * Normal tricuspid valve structure and function. * Trace tricuspid regurgitation. * No evidence of pulmonary hypertension. Pulmonic Valve * Normal pulmonic valve structure and function. * No pulmonic regurgitation. Aorta * Normally sized aortic root. Pericardium * The pericardium appears normal. IVC * Normal IVC dimensions and inspiratory collapse. Pulmonary Artery * Normal visualized portions of the main pulmonary artery. - Attending Attestation I examined this patient and my medical decision-making was reviewed with the Resident Physician. I agree with the documented findings, disposition and treatment plan as described except to the extent set forth below. Seen and examined Patient is improving Increse hydralazine, PPD is negative, continue tamiflu Rest as in resident physician's documentation
[2017-12-11] MEDS: Lisinopril 20 MG TABLET PO SCH (08:24)
[2017-12-11] MEDS: Gabapentin 300 MG CAPSULE PO SCH ×3 (08:24→21:44)
[2017-12-11] MEDS: Fenofibrate 54 MG TABLET PO SCH (08:25)
[2017-12-11] MEDS: Furosemide 40 MG TABLET PO SCH (08:25)
[2017-12-11] MEDS: hydrALAZINE 25 MG TABLET PO SCH ×3 (08:25→21:44)
[2017-12-11] MEDS: amLODIPine 5 MG TABLET PO SCH (08:25)
[2017-12-11 09:17] LABS: Lymphocytes # 1.8 K/mcL (0.6-4.6); Monocytes # 0.2 K/mcL (0.0-1.3); Neutrophils # 5.6 K/mcL (1.6-8.9); Platelet Estimate Normal (Normal); Reactive Lymphocytes Present (Not Present)
[2017-12-11 09:55] LABS: BUN/Creatinine Ratio 19 (6-26); Blood Urea Nitrogen 18 mg/dL (8-23); Calcium 9.4 mg/dL (8.6-10.3); Carbon Dioxide 25 mEq/L (23-29); Chloride 116 mEq/L (98-107); Glucose 141 mg/dL (70-105); Osmolality,Calculated 278 (280-300); Potassium 2.7 mEq/L (3.5-5.1); Sodium 132 mEq/L (136-145); eGFR For African Americans > 60 (> 60); eGFR For Non-African Americans > 60 (> 60)
--- NOTE | 2017-12-11 10:12 | Infectious Disease Progress No ---
Date of Encounter: 12/11/17 Time of Encounter: 08:00 - Assessment and Plan (1) Acute and chronic respiratory failure Current Visit: Yes Status: Acute 62yo male with known COPD(non-oxygen dependent) and everyday smoker admitted 08/2018 with dyspnea requiring oxygen. CT demonstrates innumerable ill-defined ground glass nodular opacities throughout both lungs. - Influenza B positive on PCR, negative on flu swab. - Suspected secondary to Viral pneumonia 12/11: Mr. Miranda feels significantly improved today, does not require nasal cannula oxygen. Denies any fevers, chills, diaphoresis or other concerning symptoms. He does have some hypokalemia and hyponatremia likely secondary to diuresis, no elevation of WBC, vitals stable. - PPD negative, low risk factors for tuberculosis. At this time switch to droplet precautions. - Continue Tamiflu at this time. Qualifiers: Respiratory failure complication: hypoxia Qualified Code(s): J96.21 - Acute and chronic respiratory failure with hypoxia (2) Multifocal pneumonia Current Visit: Yes Status: Acute Multifocal pneumonia likely viral in etiology - CT demonstrates innumerable ill-defined ground glass nodular opacities throughout both lungs. - Procalcitonin 0.20 which supports more likely viral compared to bacterial etiology - Patient in airborne precautions for possible TB, low risk factors, QuantiFERON -TB Gold, acid-fast smear and CX obtained. - PPD given 2 days ago, negative read this morning, no further concerning symptoms. Switch to droplet precautions. - Suspect do to Influenza B at this time will continue Tamiflu (3) Influenza B Current Visit: Yes Status: Acute Influenza B positive on PCR, negative on flu swab. - Patient was symptomatic with Acute Respiratory failure, subjective fevers, chills and diaphoresis 12/11: Symptoms resolved today - Continue Tamiflu, treatment duration 5 days (Day #2) - Subjective Interval history: Mr. Sewell is seen and evaluated patient bedside this morning. He is alert awake interactive sitting on the edge of the bed fully clothed asking if he can go home. He does not know why everyone thinks he has tuberculosis, he denies any known exposures or risk factors. He feels significantly improved today. [place] long discussion regarding what tuberculosis would be and how we evaluate for it. He is considering quitting smoking as he understands the effects on his health. Infect Dis PN-Objective Data - Labs CBC & Chem 7: 12/11/17 07:45 12/11/17 07:45 Labs: Laboratory Results - last 24 hr 12/11/17 12/11/17 07:45 07:45 WBC 7.5 RBC 4.28 Hgb 10.9 L Hct 36.0 L MCV 84.1 MCH 25.5 L MCHC 30.3 L RDW 17.4 H Plt Count 266 MPV 10.3 Seg Neutrophils % 74.0 Lymphocytes % 24.0 Monocytes % 2.0 Neutrophils # 5.6 Lymphocytes # 1.8 Monocytes # 0.2 Nucleated RBCs/100 WBC 0.4 H Reactive Lymphocytes Present A Platelet Estimate Normal Sodium 132 L Potassium 2.7 L Chloride 116 H Carbon Dioxide 25 BUN 18 Creatinine 0.94 Est GFR ( Amer) > 60 Est GFR (Non-Af Amer) > 60 BUN/Creatinine Ratio 19 Glucose 141 H Calculated Osmolality 278 L Calcium 9.4 Cultures: Cultures 12/09/17 20:10 Sputum Culture - Final Sputum Serology 12/09/17 Range/Units 18:56 Chlamy pneumoniae PCR Not Detected (Not Detect) Adenovirus (PCR) Not Detected (Not Detect) B. pertussis DNA (PCR) Not Detected (Not Detect) B.parapertussis DNA PCR Not Detected (Not Detect) Coronavirus OC43 (PCR) Not Detected (Not Detect) Coronavirus HKU1 (PCR) Not Detected (Not Detect) Coronavirus 229E (PCR) Not Detected (Not Detect) Coronavirus NL63 (PCR) Not Detected (Not Detect) Human Metapneumovir PCR Not Detected (Not Detect) Influenza A (H1) PCR Not Detected (Not Detect) Influ A (H1N1/09) PCR Not Detected (Not Detect) Influenza A (H3) PCR Not Detected (Not Detect) Influenza A Untype (PCR) Not Detected (Not Detect) Influenza Type B (PCR) DETECTED A (Not Detect) M.pneumoniae DNA (PCR) Not Detected (Not Detect) Parainfluenza 1 (PCR) Not Detected (Not Detect) Parainfluenza 2 (PCR) Not Detected (Not Detect) Parainfluenza 3 (PCR) Not Detected (Not Detect) Parainfluenza 4 (PCR) Not Detected (Not Detect) RSV (PCR) Not Detected (Not Detect) Entero/Rhino (PCR) Not Detected (Not Detect) Exam - Constitutional Vitals: Temp Pulse Resp BP Pulse Ox 97.9 F 64 20 183/96 95 12/11/17 07:58 12/11/17 07:58 12/11/17 07:58 12/11/17 07:58 12/11/17 07:58 - Head Head exam: Present: atraumatic, normocephalic - ENT ENT exam: Present: mucous membranes moist - Neck Neck exam: Present: thyromegaly Additional comments: Large left-sided nodule, confirmed on CTA of chest - Respiratory Respiratory exam: Present: rhonchi (Diffuse inspiratory rhonchi and wheezing. Diminished breath sounds bilaterally.) - Cardiovascular Cardiovascular exam: Present: RRR, +S1, +S2 - GI/Abdominal GI/Abdominal exam: Present: normal bowel sounds, soft - Extremities Exam Extremities exam: Present: normal inspection Consult Discharge Plan - Plan Referrals: Sandi Vieira, CIRCULAR SAWYER HELPER [Advanced Practice Nurse] - 12/20/17 12:30 pm - Attending Attestation I examined this patient and my medical decision-making was reviewed with the Resident Physician. I agree with the documented findings, disposition and treatment plan as described except to the extent set forth below.
[2017-12-11] MEDS ORDERED: Potassium Chloride Elixir 20 MEQ/15 ML UDC PO ONE (13:10)
[2017-12-11] MEDS: Docusate Oral Soln 100 MG/10 ML UDC PO SCH (17:55)
[2017-12-11] MEDS: Melatonin 3 MG TABLET PO SCH (21:45)
[2017-12-12] MEDS: amLODIPine 5 MG TABLET PO SCH (05:17)
[2017-12-12] MEDS: Lisinopril 20 MG TABLET PO SCH (05:17)
[2017-12-12] MEDS: hydrALAZINE 25 MG TABLET PO SCH ×3 (05:17→20:16)
[2017-12-12] MEDS: *HR* Heparin 5,000 UNIT/ML VIAL SQ SCH ×2 (05:17→18:11)
[2017-12-12 07:31] LABS: Basophils % 0.5 %; Eosinophils % 0.2 %; Hematocrit 36.2 % (37.5-50.1); Hemoglobin 10.9 g/dL (12.9-16.9); Lymphocytes # 1.6 K/mcL (0.6-4.6); Lymphocytes % 26.3 %; Mean Corpuscular HGB Conc 30.1 g/dL (31.6-35.5); Mean Corpuscular Hemoglobin 25.1 pg (28.0-33.3); Mean Corpuscular Volume 83.4 fL (83.0-100.0); Mean Platelet Volume 10.3 fL (9.4-12.4); Monocytes # 0.4 K/mcL (0.0-1.3); Monocytes % 6.9 %; Nucleated Red Blood Cells 0.8 /100 WBC (0); Platelet Count 263 K/mcL (140-400); Red Blood Count 4.34 M/mcL (4.19-5.50); Red Cell Distribution Width 17.3 % (11.5-14.5); Segmented Neutrophils % 64.1 %
[2017-12-12] MEDS: Fenofibrate 54 MG TABLET PO SCH (07:52)
[2017-12-12] MEDS: Docusate Oral Soln 100 MG/10 ML UDC PO SCH (07:52)
[2017-12-12] MEDS: Gabapentin 300 MG CAPSULE PO SCH ×3 (07:52→20:15)
[2017-12-12] MEDS: Furosemide 40 MG TABLET PO SCH (07:52)
--- NOTE | 2017-12-12 07:54 | Infectious Disease Progress No ---
Date of Encounter: 12/12/17 Time of Encounter: 07:54 - Assessment and Plan (1) Acute and chronic respiratory failure Current Visit: Yes Status: Acute 62yo male with known COPD(non-oxygen dependent) and everyday smoker admitted 08/2018 with dyspnea requiring oxygen. CT demonstrates innumerable ill-defined ground glass nodular opacities throughout both lungs. - Influenza B positive on PCR, negative on flu swab. - Suspected secondary to Viral pneumonia 12/11: Mr. Miranda feels significantly improved today, does not require nasal cannula oxygen. Denies any fevers, chills, diaphoresis or other concerning symptoms. He does have some hypokalemia and hyponatremia likely secondary to diuresis, no elevation of WBC, vitals stable. - PPD negative, low risk factors for tuberculosis. At this time switch to droplet precautions. - Continue Tamiflu at this time. 12/12: Respiratory status stable. No acute changes overnight. Tolerating Tamiflu. Qualifiers: Respiratory failure complication: hypoxia Qualified Code(s): J96.21 - Acute and chronic respiratory failure with hypoxia (2) Multifocal pneumonia Current Visit: Yes Status: Acute Multifocal pneumonia likely viral in etiology - CT demonstrates innumerable ill-defined ground glass nodular opacities throughout both lungs. - Procalcitonin 0.20 which supports more likely viral compared to bacterial etiology - Patient in airborne precautions for possible TB, low risk factors, QuantiFERON -TB Gold, acid-fast smear and CX obtained. - PPD given 2 days ago, negative read this morning, no further concerning symptoms. Switch to droplet precautions. - Suspect do to Influenza B at this time will continue Tamiflu (3) Influenza B Current Visit: Yes Status: Acute Influenza B positive on PCR, negative on flu swab. - Patient was symptomatic with Acute Respiratory failure, subjective fevers, chills and diaphoresis 12/11: Symptoms resolved today - Continue Tamiflu, treatment duration 5 days (Day #3) - Subjective Interval history: Mr. Sewell is seen and evaluated patient bedside this morning. He is alert awake interactive denies any changes overnight. Denies any fevers, chills, diaphoresis or any other concerning symptoms or signs. No further questions for infectious disease. Infect Dis PN-Objective Data - Labs CBC & Chem 7: 12/12/17 05:53 12/12/17 05:53 Labs: Laboratory Results - last 24 hr 12/11/17 12/11/17 07:45 07:45 WBC 7.5 RBC 4.28 Hgb 10.9 L Hct 36.0 L MCV 84.1 MCH 25.5 L MCHC 30.3 L RDW 17.4 H Plt Count 266 MPV 10.3 Seg Neutrophils % 74.0 Lymphocytes % 24.0 Monocytes % 2.0 Neutrophils # 5.6 Lymphocytes # 1.8 Monocytes # 0.2 Nucleated RBCs/100 WBC 0.4 H Reactive Lymphocytes Present A Platelet Estimate Normal Sodium 132 L Potassium 2.7 L Chloride 116 H Carbon Dioxide 25 BUN 18 Creatinine 0.94 Est GFR ( Amer) > 60 Est GFR (Non-Af Amer) > 60 BUN/Creatinine Ratio 19 Glucose 141 H Calculated Osmolality 278 L Calcium 9.4 Cultures: Cultures 12/09/17 20:10 Sputum Culture - Final Sputum Serology 12/09/17 Range/Units 18:56 Chlamy pneumoniae PCR Not Detected (Not Detect) Adenovirus (PCR) Not Detected (Not Detect) B. pertussis DNA (PCR) Not Detected (Not Detect) B.parapertussis DNA PCR Not Detected (Not Detect) Coronavirus OC43 (PCR) Not Detected (Not Detect) Coronavirus HKU1 (PCR) Not Detected (Not Detect) Coronavirus 229E (PCR) Not Detected (Not Detect) Coronavirus NL63 (PCR) Not Detected (Not Detect) Human Metapneumovir PCR Not Detected (Not Detect) Influenza A (H1) PCR Not Detected (Not Detect) Influ A (H1N1/09) PCR Not Detected (Not Detect) Influenza A (H3) PCR Not Detected (Not Detect) Influenza A Untype (PCR) Not Detected (Not Detect) Influenza Type B (PCR) DETECTED A (Not Detect) M.pneumoniae DNA (PCR) Not Detected (Not Detect) Parainfluenza 1 (PCR) Not Detected (Not Detect) Parainfluenza 2 (PCR) Not Detected (Not Detect) Parainfluenza 3 (PCR) Not Detected (Not Detect) Parainfluenza 4 (PCR) Not Detected (Not Detect) RSV (PCR) Not Detected (Not Detect) Entero/Rhino (PCR) Not Detected (Not Detect) - Impressions Impressions Retroperitoneum Ultrasound 12/09/17 14:00 IMPRESSION: Unremarkable ultrasound of the kidneys and urinary bladder. No hydronephrosis. D/ / 12/09/2017 15:40:32 Lashae Menjivar MD / clair Interpreting Provider: Lashae Menjivar MD Echocardiogram 12/11/17 15:42 Impressions: LVEF 60%. Normal LV chamber size and function. Moderate concentric left ventricular hypertrophy. Moderate left ventricular diastolic dysfunction. Normal right ventricular structure and function. No evidence of pulmonary hypertension. No significant valvular dysfunction. Left Ventricular Wall Motion: Rest Echo Findings All wall segments showed normal motion. Findings: Study Quality * Technically adequate exam. ECG Findings * Normal sinus rhythm. Left Ventricle * LVEF 60%. * Normal LV chamber size and function. * Moderate concentric left ventricular hypertrophy. * Moderate left ventricular diastolic dysfunction. Right Ventricle * Normal right ventricular structure and function. Left Atrium * Moderately dilated left atrium. Right Atrium * Mildly dilated right atrium. Interatrial Septum * Interatrial septum not well evaluated. Aortic Valve * Trileaflet aortic valve with normal function. * No aortic stenosis. * No aortic regurgitation. Mitral Valve * Normal mitral valve structure and function. * No mitral regurgitation. * No mitral stenosis. Tricuspid Valve * Normal tricuspid valve structure and function. * Trace tricuspid regurgitation. * No evidence of pulmonary hypertension. Pulmonic Valve * Normal pulmonic valve structure and function. * No pulmonic regurgitation. Aorta * Normally sized aortic root. Pericardium * The pericardium appears normal. IVC * Normal IVC dimensions and inspiratory collapse. Pulmonary Artery * Normal visualized portions of the main pulmonary artery. Exam - Constitutional Vitals: Temp Pulse Resp BP Pulse Ox 98.1 F 61 17 171/87 95 12/12/17 07:01 12/12/17 07:01 12/12/17 07:01 12/12/17 07:01 12/12/17 07:01 - Head Head exam: Present: atraumatic, normocephalic - Neck Neck exam: Present: normal inspection - Respiratory Respiratory exam: Present: rhonchi (difusely), wheezes - Cardiovascular Cardiovascular exam: Present: RRR, +S1, +S2 - GI/Abdominal GI/Abdominal exam: Present: normal bowel sounds, soft Consult Discharge Plan - Plan Referrals: Sandi Vieira, VEHICLE DYNAMICS ENGINEER [Advanced Practice Nurse] - 12/20/17 12:30 pm - Attending Attestation I examined this patient and my medical decision-making was reviewed with the Resident Physician. I agree with the documented findings, disposition and treatment plan as described except to the extent set forth below.
--- NOTE | 2017-12-12 08:04 | Internal Med Progress Note ---
<Yefri Harding - Last Filed: 12/12/17 13:10> Date of Encounter: 12/12/17 Time of Encounter: 08:03 - Assessment and plan (1) Pneumonia Current Visit: Yes Status: Acute Assessment and plan: Patient presented with cough and shortness of breath with hypoxia -Chest x-ray demonstrated multifocal pneumonia. -Chest CT demonstrated innumerable ill-defined groundglass nodular opacities throughout both lungs. -Received one-time dose of Zithromax and Levaquin in the ER. -Patient is influenza B + on PCR; negative on flu swab -Per infectious disease, patient's condition is likely viral in etiology -Pro calcitonin of 0.20 supports viral cause. Plan: -Tuberculin skin test, QuantiFERON-TB Gold, Procalcitonin, acid-fast smear pending -Tamiflu 75 mg twice a day for influenza B; 5 days' duration Qualifiers: Pneumonia type: due to unspecified organism Laterality: unspecified laterality Lung location: unspecified part of lung Qualified Code(s): J18.9 - Pneumonia, unspecified organism (2) Respiratory failure with hypoxia Current Visit: Yes Status: Acute Assessment and plan: Known history of COPD; does not use O2 at home -No shortness of breath at baseline -Has an albuterol inhaler that he rarely uses -O2 sat was 88% when EMS arrived -Received one time dose of solumedrol in the ED -Continue O2 via NC -Per infectious disease, likely secondary to viral pneumonia. Qualifiers: Qualified Code(s): J96.91 - Respiratory failure, unspecified with hypoxia (3) Influenza B Current Visit: Yes Status: Acute Assessment and plan: Influenza B positive on PCR, negative on flu swab. - Patient is symptomatic with Acute Respiratory failure, subjective fevers, chills and diaphoresis Plan per infectious disease: Tamiflu 75mg BID (5 days duration) (4) Hypertensive emergency Current Visit: Yes Status: Acute Assessment and plan: Patient presented with elevated blood pressure of 216/113. Hypertensive emergency based on elevated Cr and troponin Resolved; BP today was 147/72 Plan: -Hydralazine 50 mg by mouth 3 times a day -Lisinopril 20 mg by mouth daily -Amlodipine 10 mg by mouth daily -Atenolol 100 mg by mouth daily (5) MARIO (acute kidney injury) Current Visit: Yes Status: Acute Assessment and plan: Patient initially had an elevated creatinine at 1.45. -Resolved; creatinine within normal limits today. -Retroperitoneal ultrasound demonstrated no hydronephrosis; unremarkable ultrasound of the kidneys and urinary bladder. -Continue to monitor serum creatinine. (6) Anemia Current Visit: Yes Status: Acute Assessment and plan: Hemoglobin noted to be low -Will continue to monitor Qualifiers: Qualified Code(s): D64.9 - Anemia, unspecified (7) COPD (chronic obstructive pulmonary disease) Current Visit: Yes Status: Acute Assessment and plan: Albuterol sulfate inhaler 2 puffs inhaled every 4 hours Qualifiers: Qualified Code(s): J44.9 - Chronic obstructive pulmonary disease, unspecified (8) DVT prophylaxis Current Visit: Yes Status: Acute Assessment and plan: Heparin 5000 subcutaneous every 12. (9) Diabetes mellitus Current Visit: Yes Status: Acute Assessment and plan: Insulin sliding scale Qualifiers: Qualified Code(s): E11.9 - Type 2 diabetes mellitus without complications (10) Hyperlipidemia Current Visit: Yes Status: Acute Assessment and plan: TriCor 48 mg by mouth daily -Lovastatin 20 mg by mouth at bedtime Qualifiers: Qualified Code(s): E78.5 - Hyperlipidemia, unspecified - Subjective Interval history: Patient was seen and examined at bedside this morning. States that he is feeling much better today. Denies difficulty breathing. No complaints at this time. - Constitutional Vitals: Temp Pulse Resp BP Pulse Ox 98.1 F 61 17 171/87 95 12/12/17 07:01 12/12/17 07:01 12/12/17 07:01 12/12/17 07:01 12/12/17 07:01 General appearance: Present: A&O X 3, pleasant, answers questions appropriately - Head Head exam: Present: atraumatic, normocephalic - Eye Eye exam: Present: PERRL, conjuntiva pink, sclera anicteric Pupils: Present: PERRL - Neck Neck exam general surgery: Present: supple, trachea midline. Absent: lymphadenopathy - Respiratory Respiratory exam: Present: CTAB. Absent: accessory muscle use, rales, rhonchi, wheezes - Cardiovascular Cardiovascular exam: Present: RRR, +S1, +S2. Absent: diastolic murmur, gallop, rubs, systolic murmur - GI/Abdominal GI/Abdominal exam: Present: normal bowel sounds, soft, no peritoneal signs. Absent: distended, tenderness - Extremities Exam Extremities exam: Present: warm, radial pulses palpable and symmetrical. Absent : calf tenderness, cyanotic, pedal edema - Neurological Exam Neurological exam: Present: CN II-XII intact, oriented X3, no focal deficits. Absent: pronater drift, facial droop, speech deficit - Skin Skin exam: Present: dry, intact Internal Medicine: Result - Labs CBC & Chem 7: 12/12/17 05:53 12/12/17 05:53 Labs: Short CBC 12/11/17 Range/Units 07:45 WBC 7.5 (4.3-11.1) K/mcL Hgb 10.9 L (12.9-16.9) g/dL Hct 36.0 L (37.5-50.1) % Plt Count 266 (140-400) K/mcL Neutrophils # 5.6 (1.6-8.9) K/mcL BMP 12/11/17 07:45 Sodium 132 L Potassium 2.7 L Chloride 116 H Carbon Dioxide 25 BUN 18 Creatinine 0.94 Glucose 141 H Calcium 9.4 - Impressions Impressions Retroperitoneum Ultrasound 12/09/17 14:00 IMPRESSION: Unremarkable ultrasound of the kidneys and urinary bladder. No hydronephrosis. D/ / 12/09/2017 15:40:32 Lashae Menjivar MD / [email or web address] Interpreting Provider: Lashae Menjivar MD Echocardiogram 12/11/17 15:42 Impressions: LVEF 60%. Normal LV chamber size and function. Moderate concentric left ventricular hypertrophy. Moderate left ventricular diastolic dysfunction. Normal right ventricular structure and function. No evidence of pulmonary hypertension. No significant valvular dysfunction. Left Ventricular Wall Motion: Rest Echo Findings All wall segments showed normal motion. Findings: Study Quality * Technically adequate exam. ECG Findings * Normal sinus rhythm. Left Ventricle * LVEF 60%. * Normal LV chamber size and function. * Moderate concentric left ventricular hypertrophy. * Moderate left ventricular diastolic dysfunction. Right Ventricle * Normal right ventricular structure and function. Left Atrium * Moderately dilated left atrium. Right Atrium * Mildly dilated right atrium. Interatrial Septum * Interatrial septum not well evaluated. Aortic Valve * Trileaflet aortic valve with normal function. * No aortic stenosis. * No aortic regurgitation. Mitral Valve * Normal mitral valve structure and function. * No mitral regurgitation. * No mitral stenosis. Tricuspid Valve * Normal tricuspid valve structure and function. * Trace tricuspid regurgitation. * No evidence of pulmonary hypertension. Pulmonic Valve * Normal pulmonic valve structure and function. * No pulmonic regurgitation. Aorta * Normally sized aortic root. Pericardium * The pericardium appears normal. IVC * Normal IVC dimensions and inspiratory collapse. Pulmonary Artery * Normal visualized portions of the main pulmonary artery. Consult Discharge Plan - Plan Referrals: Sandi Vieira, [employer] [Advanced Practice Nurse] - 12/20/17 12:30 pm <Khadar Aquino - Last Filed: 12/12/17 14:28> Date of Encounter: 12/12/17 - Assessment and plan (1) Pneumonia Current Visit: Yes Status: Acute Qualifiers: Pneumonia type: due to unspecified organism Laterality: unspecified laterality Lung location: unspecified part of lung Qualified Code(s): J18.9 - Pneumonia, unspecified organism (2) Respiratory failure with hypoxia Current Visit: Yes Status: Acute Qualifiers: Qualified Code(s): J96.91 - Respiratory failure, unspecified with hypoxia (3) Influenza B Current Visit: Yes Status: Acute (4) Hypertensive emergency Current Visit: Yes Status: Acute (5) MARIO (acute kidney injury) Current Visit: Yes Status: Acute (6) Anemia Current Visit: Yes Status: Acute Qualifiers: Qualified Code(s): D64.9 - Anemia, unspecified (7) COPD (chronic obstructive pulmonary disease) Current Visit: Yes Status: Acute Qualifiers: Qualified Code(s): J44.9 - Chronic obstructive pulmonary disease, unspecified (8) DVT prophylaxis Current Visit: Yes Status: Acute (9) Diabetes mellitus Current Visit: Yes Status: Acute Qualifiers: Qualified Code(s): E11.9 - Type 2 diabetes mellitus without complications (10) Hyperlipidemia Current Visit: Yes Status: Acute Qualifiers: Qualified Code(s): E78.5 - Hyperlipidemia, unspecified - Constitutional Vitals: Temp Pulse Resp BP Pulse Ox 98.7 F 52 18 145/68 97 12/12/17 12:21 12/12/17 12:21 12/12/17 12:21 12/12/17 12:21 12/12/17 12:21 Internal Medicine: Result - Labs CBC & Chem 7: 12/12/17 05:53 12/12/17 05:53 Labs: Short CBC 12/12/17 Range/Units 05:53 WBC 6.0 (4.3-11.1) K/mcL Hgb 10.9 L (12.9-16.9) g/dL Hct 36.2 L (37.5-50.1) % Plt Count 263 (140-400) K/mcL Neutrophils # 3.9 (1.6-8.9) K/mcL BMP 12/12/17 05:53 Sodium 142 D Potassium 2.9 L Chloride 109 H Carbon Dioxide 25 BUN 18 Creatinine 0.97 Glucose 148 H Calcium 9.2 - Impressions Impressions Retroperitoneum Ultrasound 12/09/17 14:00 IMPRESSION: Unremarkable ultrasound of the kidneys and urinary bladder. No hydronephrosis. D/ / 12/09/2017 15:40:32 Lashae Menjivar MD / [facility] Interpreting Provider: Lashae Menjivar MD - Attending Attestation I examined this patient and my medical decision-making was reviewed with the Resident Physician. I agree with the documented findings, disposition and treatment plan as described except to the extent set forth below. Seen and examined Patient is improving ut blood pressure still uncontrolled Increase lisinopril, increase hydralazine, PPD is negative, continue tamiflu Now on room air Replace K, check Magnesium, anticipate discharge a.m Rest as in resident physician's documentation
[2017-12-12 08:13] LABS: Neutrophils # 3.9 K/mcL (1.6-8.9)
[2017-12-12 08:14] LABS: Platelet Estimate Normal (Normal); Reactive Lymphocytes Present (Not Present)
[2017-12-12] MEDS ORDERED: Lisinopril 20 MG TABLET PO SCH (09:00)
[2017-12-12] MEDS ORDERED: Lisinopril 20 MG TABLET PO ONE (09:50)
[2017-12-12 10:00] LABS: BUN/Creatinine Ratio 19 (6-26); Blood Urea Nitrogen 18 mg/dL (8-23); Calcium 9.2 mg/dL (8.6-10.3); Carbon Dioxide 25 mEq/L (23-29); Chloride 109 mEq/L (98-107); Glucose 148 mg/dL (70-105); Osmolality,Calculated 299 (280-300); Potassium 2.9 mEq/L (3.5-5.1); Sodium 142 mEq/L (136-145); eGFR For African Americans > 60 (> 60); eGFR For Non-African Americans > 60 (> 60)
[2017-12-12] MEDS: Melatonin 3 MG TABLET PO SCH (20:16)
[2017-12-13 01:48] LABS: QuantiFERON Mitogen minus NIL 1.47 IU/mL
[2017-12-13 04:43] LABS: Basophils # 0.1 K/mcL (0.0-0.2); Basophils % 0.6 %; Eosinophils % 0.4 %; Hematocrit 37.8 % (37.5-50.1); Hemoglobin 11.5 g/dL (12.9-16.9); Immature Granulocytes % 2.3 % (0-4); Lymphocytes # 1.8 K/mcL (0.6-4.6); Lymphocytes % 20.8 %; Mean Corpuscular HGB Conc 30.4 g/dL (31.6-35.5); Mean Corpuscular Hemoglobin 25.4 pg (28.0-33.3); Mean Corpuscular Volume 83.6 fL (83.0-100.0); Mean Platelet Volume 10.1 fL (9.4-12.4); Monocytes # 0.5 K/mcL (0.0-1.3); Monocytes % 5.7 %; Neutrophils # 5.9 K/mcL (1.6-8.9); Platelet Count 284 K/mcL (140-400); Red Blood Count 4.52 M/mcL (4.19-5.50); Red Cell Distribution Width 17.3 % (11.5-14.5); Segmented Neutrophils % 70.2 %
[2017-12-13 05:12] LABS: BUN/Creatinine Ratio 23 (6-26); Blood Urea Nitrogen 24 mg/dL (8-23); Calcium 9.3 mg/dL (8.6-10.3); Carbon Dioxide 23 mEq/L (23-29); Chloride 108 mEq/L (98-107); Glucose 158 mg/dL (70-105); Osmolality,Calculated 295 (280-300); Sodium 139 mEq/L (136-145); eGFR For African Americans > 60 (> 60); eGFR For Non-African Americans > 60 (> 60)
[2017-12-13] MEDS: *HR* Heparin 5,000 UNIT/ML VIAL SQ SCH (05:15)
[2017-12-13 06:51] LABS: Large Platelets Present (Not Present); Platelet Estimate Normal (Normal); Reactive Lymphocytes Present (Not Present)
[2017-12-13 07:36] VITALS: BP 158/76
[2017-12-13 07:54] LABS: QuantiFERON NIL 0.18 IU/mL; QuantiFERON-TB Gold In-Tube NEGATIVE (Negative)
[2017-12-13] MEDS: hydrALAZINE 25 MG TABLET PO SCH (08:20)
[2017-12-13] MEDS: Docusate Oral Soln 100 MG/10 ML UDC PO SCH (08:20)
[2017-12-13] MEDS: amLODIPine 5 MG TABLET PO SCH (08:20)
[2017-12-13] MEDS: Gabapentin 300 MG CAPSULE PO SCH (08:20)
[2017-12-13] MEDS: Furosemide 40 MG TABLET PO SCH (08:20)
[2017-12-13] MEDS: Fenofibrate 54 MG TABLET PO SCH (08:20)
--- NOTE | 2017-12-13 08:33 | Internal Med Progress Note ---
Date of Encounter: 12/13/17 Time of Encounter: 09:00 - Assessment and plan (1) Pneumonia Current Visit: Yes Status: Acute Assessment and plan: Patient presented with cough and shortness of breath with hypoxia -Chest x-ray demonstrated multifocal pneumonia. -Chest CT demonstrated innumerable ill-defined groundglass nodular opacities throughout both lungs. -Received one-time dose of Zithromax and Levaquin in the ER. -Patient is influenza B + on PCR; negative on flu swab -Per infectious disease, patient's condition is likely viral in etiology -Pro calcitonin of 0.20 supports viral cause. Plan: -Tuberculin skin test, QuantiFERON-TB Gold, Procalcitonin, acid-fast smear pending -Tamiflu 75 mg twice a day for influenza B; 5 days' duration Qualifiers: Pneumonia type: due to unspecified organism Laterality: unspecified laterality Lung location: unspecified part of lung Qualified Code(s): J18.9 - Pneumonia, unspecified organism (2) Respiratory failure with hypoxia Current Visit: Yes Status: Acute Assessment and plan: Known history of COPD; does not use O2 at home -No shortness of breath at baseline -Has an albuterol inhaler that he rarely uses -O2 sat was 88% when EMS arrived -Received one time dose of solumedrol in the ED -Continue O2 via NC -Per infectious disease, likely secondary to viral pneumonia. (3) Influenza B Current Visit: Yes Status: Acute Assessment and plan: Influenza B positive on PCR, negative on flu swab. - Patient is symptomatic with Acute Respiratory failure, subjective fevers, chills and diaphoresis Plan per infectious disease: Tamiflu 75mg BID (5 days duration) (4) Hypertensive emergency Current Visit: Yes Status: Acute Assessment and plan: Patient presented with elevated blood pressure of 216/113. Hypertensive emergency based on elevated Cr and troponin Resolved; BP today was 158/76 Plan: -Hydralazine 50 mg by mouth 3 times a day -Lisinopril 20 mg by mouth daily -Amlodipine 10 mg by mouth daily -Atenolol 100 mg by mouth daily (5) MARIO (acute kidney injury) Current Visit: Yes Status: Acute Assessment and plan: Patient initially had an elevated creatinine at 1.45. -Resolved; creatinine within normal limits today. -Retroperitoneal ultrasound demonstrated no hydronephrosis; unremarkable ultrasound of the kidneys and urinary bladder. -Continue to monitor serum creatinine. (6) Anemia Current Visit: Yes Status: Acute Assessment and plan: Hemoglobin noted to be low -Will continue to monitor (7) COPD (chronic obstructive pulmonary disease) Current Visit: Yes Status: Acute Assessment and plan: Albuterol sulfate inhaler 2 puffs inhaled every 4 hours (8) DVT prophylaxis Current Visit: Yes Status: Acute Assessment and plan: Heparin 5000 subcutaneous every 12. (9) Diabetes mellitus Current Visit: Yes Status: Acute Assessment and plan: Insulin sliding scale (10) Hyperlipidemia Current Visit: Yes Status: Acute Assessment and plan: TriCor 48 mg by mouth daily -Lovastatin 20 mg by mouth at bedtime - Subjective Interval history: Patient was seen and examined at bedside this morning. States that he is feeling much better today. Denies difficulty breathing. No complaints at this time. - Constitutional Vitals: Temp Pulse Resp BP Pulse Ox 98.9 F 57 16 158/76 97 12/13/17 07:33 12/13/17 08:27 12/13/17 07:37 12/13/17 07:33 12/13/17 07:37 General appearance: Present: A&O X 3, pleasant, answers questions appropriately - Head Head exam: Present: atraumatic, normocephalic - Eye Eye exam: Present: PERRL, conjuntiva pink, sclera anicteric Pupils: Present: PERRL - Neck Neck exam general surgery: Present: supple, trachea midline. Absent: lymphadenopathy - Respiratory Respiratory exam: Present: CTAB. Absent: accessory muscle use, rales, rhonchi, wheezes - Cardiovascular Cardiovascular exam: Present: RRR, +S1, +S2. Absent: diastolic murmur, gallop, rubs, systolic murmur - GI/Abdominal GI/Abdominal exam: Present: normal bowel sounds, soft, no peritoneal signs. Absent: distended, tenderness - Extremities Exam Extremities exam: Present: warm, radial pulses palpable and symmetrical. Absent : calf tenderness, cyanotic, pedal edema - Neurological Exam Neurological exam: Present: CN II-XII intact, oriented X3, no focal deficits. Absent: pronater drift, facial droop, speech deficit - Skin Skin exam: Present: dry, intact Internal Medicine: Result - Labs CBC & Chem 7: 12/13/17 04:11 12/13/17 04:11 Labs: Short CBC 03/16/18 Range/Units 04:11 WBC 8.4 (4.3-11.1) K/mcL Hgb 11.5 L (12.9-16.9) g/dL Hct 37.8 (37.5-50.1) % Plt Count 284 (140-400) K/mcL Neutrophils # 5.9 (1.6-8.9) K/mcL BMP 12/12/17 12/13/17 05:53 04:11 Sodium 142 D 139 Potassium 2.9 L 4.0 D Chloride 109 H 108 H Carbon Dioxide 25 23 BUN 18 24 H Creatinine 0.97 1.05 Glucose 148 H 158 H Calcium 9.2 9.3 Consult Discharge Plan - Plan Referrals: Sandi Vieira, [employer] [Advanced Practice Nurse] - 12/20/17 12:30 pm
--- NOTE | 2017-12-13 08:49 | Infectious Disease Progress No ---
Date of Encounter: 12/13/17 Time of Encounter: 08:48 - Assessment and Plan (1) Acute and chronic respiratory failure Status: Acute 62yo male with known COPD(non-oxygen dependent) and everyday smoker admitted 08/2018 with dyspnea requiring oxygen. CT demonstrates innumerable ill-defined ground glass nodular opacities throughout both lungs. - Influenza B positive on PCR, negative on flu swab. - Suspected secondary to Viral pneumonia 12/11: Mr. Miranda feels significantly improved today, does not require nasal cannula oxygen. Denies any fevers, chills, diaphoresis or other concerning symptoms. He does have some hypokalemia and hyponatremia likely secondary to diuresis, no elevation of WBC, vitals stable. - PPD negative, low risk factors for tuberculosis. At this time switch to droplet precautions. - Continue Tamiflu at this time. 12/12: Respiratory status stable. No acute changes overnight. Tolerating Tamiflu. 12/13: Continues to be stable, no acute changes. Qualifiers: Respiratory failure complication: hypoxia Qualified Code(s): J96.21 - Acute and chronic respiratory failure with hypoxia (2) Multifocal pneumonia Status: Acute Multifocal pneumonia likely viral in etiology - CT demonstrates innumerable ill-defined ground glass nodular opacities throughout both lungs. - Procalcitonin 0.20 which supports more likely viral compared to bacterial etiology - Patient in airborne precautions for possible TB, low risk factors, QuantiFERON -TB Gold, acid-fast smear and CX obtained. - PPD given 3 days ago, negative read this morning, no further concerning symptoms. Continue droplet precautions. - Suspect do to Influenza B at this time will continue Tamiflu (3) Influenza B Status: Acute Influenza B positive on PCR, negative on flu swab. - Patient was symptomatic with Acute Respiratory failure, subjective fevers, chills and diaphoresis 12/13: Symptoms resolved today - Continue Tamiflu, treatment duration 5 days (Day #4) - Subjective Interval history: Mr. Sewell is seen and evaluated patient bedside this morning. He is alert awake interactive denies any changes overnight. Denies any fevers, chills, diaphoresis or any other concerning symptoms or signs. No further questions for infectious disease. Infect Dis PN-Objective Data - Labs CBC & Chem 7: 12/13/17 04:11 12/13/17 04:11 Labs: Laboratory Results - last 24 hr 12/09/17 12/12/17 12/12/17 04:41 05:53 14:41 WBC RBC Hgb Hct MCV MCH MCHC RDW Plt Count MPV Immature Gran % Seg Neutrophils % Lymphocytes % Monocytes % Eosinophils % Basophils % Neutrophils # Lymphocytes # Monocytes # Eosinophils # Basophils # Reactive Lymphocytes Platelet Estimate Large Platelets Sodium 142 D Potassium 2.9 L Chloride 109 H Carbon Dioxide 25 BUN 18 Creatinine 0.97 Est GFR ( Amer) > 60 Est GFR (Non-Af Amer) > 60 BUN/Creatinine Ratio 19 Glucose 148 H Calculated Osmolality 299 Calcium 9.2 Magnesium 2.0 TB (QFT) Gold In Tube NEGATIVE TB Test (QFT) Nil 0.18 TB Test Mitogen - Nil 1.47 Specimen Rejected 12/12/17 12/13/17 12/13/17 16:40 04:11 04:11 WBC 8.4 RBC 4.52 Hgb 11.5 L Hct 37.8 MCV 83.6 MCH 25.4 L MCHC 30.4 L RDW 17.3 H Plt Count 284 MPV 10.1 Immature Gran % 2.3 Seg Neutrophils % 70.2 Lymphocytes % 20.8 Monocytes % 5.7 Eosinophils % 0.4 Basophils % 0.6 Neutrophils # 5.9 Lymphocytes # 1.8 Monocytes # 0.5 Eosinophils # 0.0 Basophils # 0.1 Reactive Lymphocytes Present A Platelet Estimate Normal Large Platelets Present A Sodium 139 Potassium 4.0 D Chloride 108 H Carbon Dioxide 23 BUN 24 H Creatinine 1.05 Est GFR ( Amer) > 60 Est GFR (Non-Af Amer) > 60 BUN/Creatinine Ratio 23 Glucose 158 H Calculated Osmolality 295 Calcium 9.3 Magnesium TB (QFT) Gold In Tube TB Test (QFT) Nil TB Test Mitogen - Nil Specimen Rejected Container Cultures: Cultures 12/12/17 20:00 Legionella Antigen - Final Urine,Clean Catch 12/09/17 20:10 Sputum Culture - Final Sputum Serology 12/09/17 12/09/17 Range/Units 18:56 04:41 Chlamy pneumoniae PCR Not Detected (Not Detect) Adenovirus (PCR) Not Detected (Not Detect) B. pertussis DNA (PCR) Not Detected (Not Detect) B.parapertussis DNA PCR Not Detected (Not Detect) Coronavirus OC43 (PCR) Not Detected (Not Detect) Coronavirus HKU1 (PCR) Not Detected (Not Detect) Coronavirus 229E (PCR) Not Detected (Not Detect) Coronavirus NL63 (PCR) Not Detected (Not Detect) Human Metapneumovir PCR Not Detected (Not Detect) Influenza A (H1) PCR Not Detected (Not Detect) Influ A (H1N1/09) PCR Not Detected (Not Detect) Influenza A (H3) PCR Not Detected (Not Detect) Influenza A Untype (PCR) Not Detected (Not Detect) Influenza Type B (PCR) DETECTED A (Not Detect) M.pneumoniae DNA (PCR) Not Detected (Not Detect) Parainfluenza 1 (PCR) Not Detected (Not Detect) Parainfluenza 2 (PCR) Not Detected (Not Detect) Parainfluenza 3 (PCR) Not Detected (Not Detect) Parainfluenza 4 (PCR) Not Detected (Not Detect) RSV (PCR) Not Detected (Not Detect) Entero/Rhino (PCR) Not Detected (Not Detect) TB (QFT) Gold In Tube NEGATIVE (Negative) TB Test (QFT) Nil 0.18 IU/mL TB Test Mitogen - Nil 1.47 IU/mL Exam - Constitutional Vitals: Temp Pulse Resp BP Pulse Ox 98.9 F 57 16 158/76 97 12/13/17 07:33 12/13/17 08:27 12/13/17 07:37 12/13/17 07:33 12/13/17 07:37 - ENT ENT exam: Present: mucous membranes moist - Respiratory Respiratory exam: Present: rhonchi (Mild more prominent in bilateral lung bases. ) - Cardiovascular Cardiovascular exam: Present: RRR, +S1, +S2 - GI/Abdominal GI/Abdominal exam: Present: normal bowel sounds, soft - Extremities Exam Extremities exam: Present: normal inspection Consult Discharge Plan - Plan Instructions: Chronic Hypertension (DC), Pneumonia (DC) Referrals: Sandi Vieira CNP [Advanced Practice Nurse] - 12/20/17 1:45 pm Bryant Hurtado MD [Partnered Physician] - 12/20/17 9:15 am Prescriptions: Oseltamivir [Tamiflu] 75 mg PO BID 2 Days #4 capsule - Attending Attestation I did not have a chance to see the patient. Patient was discharged prior to my evaluation.
[2017-12-13] MEDS ORDERED: Lisinopril 20 MG TABLET PO SCH (09:00)
--- NOTE | 2017-12-13 10:48 | Discharge Summary ---
<Yefri Harding - Last Filed: 12/13/17 11:54> Orders not resulted at time of discharge: Pending orders 12/09/17 04:20 AFB Culture, Respiratory [TB] Stat AFB Smear [TB] Stat 12/12/17 16:27 Anti-Streptolysin O Antibody Routine 12/14/17 04:00 Basic Metabolic Panel AM 0400 Complete Blood Count [HEME] AM 0400 Date of Encounter: 12/13/17 Time of Encounter: 10:47 - Discharge Diagnosis (1) Pneumonia Priority: Primary Status: Acute Qualifiers: Pneumonia type: due to unspecified organism Laterality: unspecified laterality Lung location: unspecified part of lung Qualified Code(s): J18.9 - Pneumonia, unspecified organism (2) Respiratory failure with hypoxia Priority: Secondary Status: Acute Qualifiers: Qualified Code(s): J96.91 - Respiratory failure, unspecified with hypoxia (3) Influenza B Priority: Secondary Status: Acute (4) Hypertensive emergency Priority: Secondary Status: Acute (5) MARIO (acute kidney injury) Priority: Secondary Status: Acute (6) Anemia Priority: Secondary Status: Acute Qualifiers: Qualified Code(s): D64.9 - Anemia, unspecified (7) COPD (chronic obstructive pulmonary disease) Priority: Secondary Status: Acute Qualifiers: Qualified Code(s): J44.9 - Chronic obstructive pulmonary disease, unspecified (8) DVT prophylaxis Priority: Secondary Status: Acute (9) Diabetes mellitus Priority: Secondary Status: Acute Qualifiers: Qualified Code(s): E11.9 - Type 2 diabetes mellitus without complications (10) Hyperlipidemia Priority: Secondary Status: Acute Qualifiers: Qualified Code(s): E78.5 - Hyperlipidemia, unspecified Hospital course: Mr. Sewell is a 62 year old male with a past medical history of COPD, hypertension, diabetes mellitus who presented to the emergency department with chief complaint of shortness of breath cough since . Cough is nonproductive. Denies fever, chest pain, nausea, vomiting, or abdominal pain. Denies sick contacts. Was placed on oxygen when EMS arrived. Was 88% on 3 L via nasal cannula on arrival. Upon arrival, patient had an elevated temperature 99.9. Blood pressure was also elevated at 216/113. Other vital signs were within normal limits. Chest x-ray demonstrated multifocal pneumonia. CT scan demonstrated innumerable ill-defined groundglass nodular opacities throughout both lungs, right greater than left. Laboratory analysis demonstrated elevated creatinine at 1.45, elevated troponin 0.05, CRP of 156, BNP 695, potassium 3.4. Patient was given a one-time dose of Zithromax, Levaquin, and Solu-Medrol. He was also given a one-time dose of Lopressor for blood pressure control. The following were obtained: Acid-fast smear and culture, sputum culture with Gram stain, blood culture, prolactin, QuantiFERON- TB Gold. Patient tested positive for influenza B. ID was consulted for recommendations. ID reported that patients condition was likely due to viral PNA. Antibiotics were discontinued; patient was started on Tamiflu. Procalcitonin was 0.20. Patient was noted to have a persistently high blood pressure while in the hospital. He was on the following medications: Hydralazine 50 mg by mouth 3 times a day, Lisinopril 20 mg by mouth daily, Amlodipine 10 mg by mouth daily, and Atenolol 100 mg by mouth daily. His breathing gradually improved, and eventually did not require O2 via NC. Patient was seen and examined at bedside on the morning of discharge. Reports that his shortness of breath has resolved. He has no complaints at this time. Will be given 4 more doses of tamiflu. - Time Spent with Patient Total time spent providing and/or coordinating discharge services: Greater than 30 minutes (42 minutes) - Discharge Medications Prescriptions: Oseltamivir [Tamiflu] 75 mg PO BID 2 Days #4 capsule Home Medications: Albuterol Sulfate [Albuterol Inhaler] 2 puff IH Q4H 12/09/17 [History] Amlodipine Besylate [Amlodipine Besylate] 10 mg PO DAILY 12/09/17 [History] Atenolol [Atenolol] 100 mg PO DAILY 12/09/17 [History] Dexlansoprazole [Dexilant] 60 mg PO DAILY 12/09/17 [History] Fenofibrate Nanocrystallized [Tricor] 48 mg PO DAILY 12/09/17 [History] Furosemide [Lasix] 40 mg PO DAILY 12/09/17 [History] Gabapentin [Neurontin] 300 mg PO TID 12/09/17 [History] Lisinopril [Zestril] 20 mg PO DAILY 12/09/17 [History] Lovastatin [Mevacor] 20 mg PO HS 12/09/17 [History] Meloxicam [Meloxicam] 7.5 mg PO DAILY 12/09/17 [History] Pioglitazone [Actos] 15 mg PO DAILY 12/09/17 [History] Tamsulosin [Flomax] 0.4 mg PO DAILY 12/09/17 [History] Tizanidine HCl [Tizanidine HCl] 2 mg PO TID 12/09/17 [History] hydrALAZINE [HydrALAZINE] 25 mg PO TID 12/09/17 [History] Oseltamivir [Tamiflu] 75 mg PO BID 2 Days #4 capsule 12/13/17 [Rx] Allergies/Adverse Reactions: 3 Allergy/AdvReac Type Severity Reaction Status Date / Time No Known Allergies Allergy Verified 12/09/17 10:21 Date of admission: 12/09/17 04:06 Primary care physician: Mando An DO Consults: 12/10/17 15:52 Consult to Infectious Diseases [CONS] Routine Consulting Provider: Infectious [facility] Reason for Consult: Possible TB; multifocal PNA Call Completed: Yes Discharging clinician: Yefri Harding Anticipated date of discharge: 12/13/17 - Constitutional Vitals: Temp Pulse Resp BP Pulse Ox 98.9 F 57 16 158/76 97 12/13/17 07:33 12/13/17 08:27 12/13/17 07:37 12/13/17 07:33 12/13/17 07:37 General appearance: Present: A&O X 3, pleasant, answers questions appropriately - Head Head exam: Present: atraumatic, normocephalic - Eye Eye exam: Present: PERRL, conjuntiva pink, sclera anicteric Pupils: Present: PERRL - Neck Neck exam general surgery: Present: supple, trachea midline. Absent: lymphadenopathy - Respiratory Respiratory exam: Present: CTAB. Absent: accessory muscle use, rales, rhonchi, wheezes - Cardiovascular Cardiovascular exam: Present: RRR, +S1, +S2. Absent: diastolic murmur, gallop, rubs, systolic murmur - Extremities Exam Extremities exam: Present: warm, radial pulses palpable and symmetrical. Absent : calf tenderness, cyanotic, pedal edema - Neurological Exam Neurological exam: Present: CN II-XII intact, oriented X3, no focal deficits. Absent: pronater drift, facial droop, speech deficit - Skin Skin exam: Present: dry, intact - Patient Status Disposition: Home, Self-Care Condition: Good Overall status at discharge: patient is progressing back to baseline - Discharge Instructions Instructions: Chronic Hypertension (DC), Pneumonia (DC) Follow Up With: Sandi Vieira CNP [Advanced Practice Nurse] - 12/20/17 1:45 pm Bryant Hurtado MD [Partnered Physician] - 12/20/17 9:15 am - Diet and Activity Activity: increase activity as tolerated Diet: advance to your usual diet <Khadar Aquino - Last Filed: 12/13/17 12:55> Orders not resulted at time of discharge: Pending orders 12/09/17 04:20 AFB Culture, Respiratory [TB] Stat AFB Smear [TB] Stat 12/12/17 16:27 Anti-Streptolysin O Antibody Routine 12/14/17 04:00 Basic Metabolic Panel AM 0400 Complete Blood Count [HEME] AM 0400 Date of Encounter: 12/13/17 - Discharge Diagnosis (1) Pneumonia Status: Ruled-out Qualifiers: Pneumonia type: due to unspecified organism Laterality: unspecified laterality Lung location: unspecified part of lung Qualified Code(s): J18.9 - Pneumonia, unspecified organism (2) Respiratory failure with hypoxia Status: Resolved Qualifiers: Qualified Code(s): J96.91 - Respiratory failure, unspecified with hypoxia (3) Influenza B Status: Acute (4) Hypertensive emergency Status: Resolved (5) MARIO (acute kidney injury) Status: Resolved (6) Anemia Status: Chronic Qualifiers: Qualified Code(s): D64.9 - Anemia, unspecified (7) COPD (chronic obstructive pulmonary disease) Status: Acute Qualifiers: Qualified Code(s): J44.9 - Chronic obstructive pulmonary disease, unspecified (8) DVT prophylaxis Status: Acute (9) Diabetes mellitus Status: Chronic Qualifiers: Qualified Code(s): E11.9 - Type 2 diabetes mellitus without complications (10) Hyperlipidemia Status: Chronic Qualifiers: Qualified Code(s): E78.5 - Hyperlipidemia, unspecified Hospital course: Mr. Sewell is a 62 year old male Discharge discussed with: patient, nurse - Time Spent with Patient Total time spent providing and/or coordinating discharge services: Date of admission: 12/09/17 04:06 Primary care physician: Mando An DO Consults: 12/10/17 15:52 Consult to Infectious Diseases [CONS] Routine Consulting Provider: Infectious Disease [facility] Reason for Consult: Possible TB; multifocal PNA Call Completed: Yes - Constitutional Vitals: Temp Pulse Resp BP Pulse Ox 98.9 F 57 18 158/76 97 12/13/17 07:33 12/13/17 08:27 12/13/17 11:41 12/13/17 07:33 12/13/17 11:41 - Attending Attestation I examined this patient and my medical decision-making was reviewed with the Resident Physician. I agree with the documented findings, disposition and treatment plan as described except to the extent set forth below. Seen and examined He was admitted for Hypertensive emergency with resultant MARIO, elevated troponin , Pulmonary edema, suspected pneumonia, Influenza pneumonia Rest as in resident physician's documentation all his problems have resolved TB was ruled out, ACS was ruled out, ECHO showed LVDD He is receiving tamiflu for infleunza Blood pressure is better controlled on current regimen-home meds were adjusted with increases in hydralazine and lisinopril Physical exam is unremarkable Patient is stable to be discharged home on current regimen, complete tamiflu at home Follow up with PCP Rest of details as in the resident physician's documentation
== END 2017-12-13 12:57 | disposition home or self-care (01) | DRG 193 ==
LOC: EMEROO 02:08 → 2NENU 02:08 → SUATTDRO 04:06 → 2NENU 04:51 → 2NNU 21:50
PROVIDERS: ADMIT Internal Medicine; ATTEND Internal Medicine

== ENCOUNTER 2019-08-02 16:34 | Inpatient (IN) ==
[2019-08-02] MEDS ORDERED: Aspirin 81 MG TAB.CHEW PO ONE (16:40)
[2019-08-02] MEDS ORDERED: Isovue-370 500 ML BOTTLE IVP ONE (16:40)
[2019-08-02] MEDS ORDERED: methylPREDNISolone 125 MG/2 ML VIAL IVP ONE (16:42)
[2019-08-02] MEDS ORDERED: Ipratropium/Albuterol Neb 3 ML IH ONE (16:42)
[2019-08-02 17:00] LABS: Basophils % 0.3 %; Eosinophils % 0.2 %; Hematocrit 39.6 % (37.5-50.1); Hemoglobin 12.8 g/dL (12.9-16.9); Immature Granulocytes % 0.4 % (0-4); Lymphocytes # 1.3 K/mcL (0.6-4.6); Lymphocytes % 12.4 %; Mean Corpuscular HGB Conc 32.3 g/dL (31.6-35.5); Mean Corpuscular Hemoglobin 28.2 pg (28.0-33.3); Mean Corpuscular Volume 87.2 fL (83.0-100.0); Mean Platelet Volume 10.1 fL (9.4-12.4); Monocytes # 0.9 K/mcL (0.0-1.3); Neutrophils # 8.1 K/mcL (1.6-8.9); Platelet Count 241 K/mcL (140-400); Red Blood Count 4.54 M/mcL (4.19-5.50); Red Cell Distribution Width 17.6 % (11.5-14.5); Segmented Neutrophils % 77.7 %; White Blood Count 10.4 K/mcL (4.3-11.1)
[2019-08-02 17:06] LABS: INR 1.2; Prothrombin Time 13.1 Seconds (9.4-12.1)
[2019-08-02 17:08] LABS: Activated Partial Thrombo Time 34.8 Seconds (26.0-36.0)
[2019-08-02 17:21] LABS: BUN/Creatinine Ratio 16 (6-26); Blood Urea Nitrogen 20 mg/dL (8-23); Calcium 9.1 mg/dL (8.6-10.3); Carbon Dioxide 28 mEq/L (23-29); Chloride 103 mEq/L (98-107); Glucose 154 mg/dL (70-105); Osmolality,Calculated 294 (280-300); Potassium 3.5 mEq/L (3.5-5.1); Sodium 139 mEq/L (136-145); eGFR For African Americans > 60 (> 60); eGFR For Non-African Americans 59 (> 60)
[2019-08-02 17:22] LABS: Troponin I < 0.03 ng/mL (< 0.04)
[2019-08-02] MEDS ORDERED: *HR* FentaNYL (PF) 100 MCG/2 ML VIAL IVP ONE (18:48)
[2019-08-02] MEDS ORDERED: Naloxone 0.4 MG/ML INJ IVP PRN (22:11)
[2019-08-02] MEDS ORDERED: *HR* Dextrose 50 % in Water (Syg) 50 ML SYRINGE IVP PRN (22:18)
[2019-08-02] MEDS ORDERED: D5% in Water 1,000 ML IVC PRN (22:18)
[2019-08-02] MEDS ORDERED: Dextrose Gel 15 GM/37.5 ML TUBE PO PRN ×2 (22:18)
[2019-08-02] MEDS: tiZANidine 4 MG TABLET PO PRN (22:58)
[2019-08-02] MEDS: hydrALAZINE 25 MG TABLET PO SCH (22:58)
[2019-08-02] MEDS: Gabapentin 300 MG CAPSULE PO SCH (22:58)
[2019-08-02] MEDS: methylPREDNISolone 125 MG/2 ML VIAL IVP SCH (22:59)
[2019-08-02] MEDS: Ipratropium/Albuterol Neb 3 ML IH SCH (23:47)
[2019-08-03] MEDS: Insulin LISPRO 300 UNITS/3 ML VIAL SQ SCH ×4 (03:42→17:47)
[2019-08-03] MEDS: Ipratropium/Albuterol Neb 3 ML IH SCH ×4 (04:19→22:34)
[2019-08-03 05:53] LABS: Basophils % 0.1 %; Hematocrit 37.3 % (37.5-50.1); Hemoglobin 12.2 g/dL (12.9-16.9); Immature Granulocytes % 0.6 % (0-4); Immature Platelets 2.3 % (1.1-6.1); Lymphocytes # 0.5 K/mcL (0.6-4.6); Lymphocytes % 5.8 %; Mean Corpuscular HGB Conc 32.7 g/dL (31.6-35.5); Mean Corpuscular Hemoglobin 28.2 pg (28.0-33.3); Mean Corpuscular Volume 86.1 fL (83.0-100.0); Mean Platelet Volume 11.2 fL (9.4-12.4); Monocytes # 0.1 K/mcL (0.0-1.3); Monocytes % 1.1 %; Neutrophils # 8.2 K/mcL (1.6-8.9); Platelet Count 181 K/mcL (140-400); Red Blood Count 4.33 M/mcL (4.19-5.50); Red Cell Distribution Width 17.4 % (11.5-14.5); Segmented Neutrophils % 92.4 %; White Blood Count 8.9 K/mcL (4.3-11.1)
[2019-08-03 06:05] LABS: BUN/Creatinine Ratio 18 (6-26); Blood Urea Nitrogen 24 mg/dL (8-23); Calcium 9.1 mg/dL (8.6-10.3); Carbon Dioxide 24 mEq/L (23-29); Chloride 103 mEq/L (98-107); Glucose 333 mg/dL (70-105); Osmolality,Calculated 303 (280-300); Potassium 3.3 mEq/L (3.5-5.1); Sodium 138 mEq/L (136-145); eGFR For African Americans > 60 (> 60); eGFR For Non-African Americans 54 (> 60)
[2019-08-03] MEDS: *HR* Heparin 5,000 UNIT/ML VIAL SQ SCH ×2 (06:28→17:46)
[2019-08-03] MEDS: methylPREDNISolone 125 MG/2 ML VIAL IVP SCH (08:00)
[2019-08-03] MEDS: hydrALAZINE 25 MG TABLET PO SCH ×3 (08:00→20:51)
[2019-08-03] MEDS ORDERED: Furosemide 40 MG TABLET PO SCH (09:00)
[2019-08-03] MEDS ORDERED: Lisinopril 20 MG TABLET PO SCH (09:00)
[2019-08-03 09:18] LABS: Magnesium 2.1 mg/dL (1.6-2.6)
[2019-08-03] MEDS ORDERED: Regadenoson 0.4 MG/5 ML SYRINGE IVP ONE (10:57)
[2019-08-03 12:15] LABS: Estimated Average Glucose 169 mg/dl
[2019-08-03] MEDS ORDERED: Perflutren Lipid Microsphere 1.3 ML in 0.9 % Sodium Chloride 8.7 ML IVP ONE (12:58)
[2019-08-03] MEDS: Gabapentin 300 MG CAPSULE PO SCH ×3 (14:10→20:51)
[2019-08-03] MEDS: amLODIPine 5 MG TABLET PO SCH (14:26)
[2019-08-04] MEDS: Insulin LISPRO 300 UNITS/3 ML VIAL SQ SCH ×4 (00:13→16:38)
[2019-08-04] MEDS: Ipratropium/Albuterol Neb 3 ML IH SCH ×4 (03:53→21:56)
[2019-08-04 05:12] LABS: BUN/Creatinine Ratio 22 (6-26); Blood Urea Nitrogen 26 mg/dL (8-23); Calcium 8.9 mg/dL (8.6-10.3); Carbon Dioxide 28 mEq/L (23-29); Chloride 107 mEq/L (98-107); Glucose 203 mg/dL (70-105); Osmolality,Calculated 303 (280-300); Potassium 3.3 mEq/L (3.5-5.1); Sodium 141 mEq/L (136-145); eGFR For African Americans > 60 (> 60); eGFR For Non-African Americans > 60 (> 60)
[2019-08-04] MEDS: *HR* Heparin 5,000 UNIT/ML VIAL SQ SCH ×2 (06:01→16:36)
[2019-08-04] MEDS: amLODIPine 5 MG TABLET PO SCH (09:00)
[2019-08-04] MEDS: Furosemide 20 MG TABLET PO SCH (09:00)
[2019-08-04] MEDS: hydrALAZINE 25 MG TABLET PO SCH ×3 (09:00→21:09)
[2019-08-04] MEDS ORDERED: Lisinopril 20 MG TABLET PO SCH (09:00)
[2019-08-04] MEDS ORDERED: predniSONE 20 MG TABLET PO SCH (09:00)
[2019-08-04] MEDS: Gabapentin 300 MG CAPSULE PO SCH ×3 (11:00→21:08)
[2019-08-04] MEDS: Aspirin Enteric Coated 81 MG Tablet PO SCH (16:38)
[2019-08-04] MEDS: Insulin DETEMIR 100 UNIT/ML X5UNITS SQ SCH (21:09)
[2019-08-04] MEDS: Lisinopril 20 MG TABLET PO SCH (21:09)
[2019-08-04] MEDS: Budesonide/Formoterol 160/4.5 1 PUFF INH IH SCH (21:56)
[2019-08-05] MEDS: Ipratropium/Albuterol Neb 3 ML IH SCH ×4 (03:44→22:05)
[2019-08-05] MEDS: Insulin LISPRO 300 UNITS/3 ML VIAL SQ SCH ×4 (04:49→17:34)
[2019-08-05 05:14] LABS: Basophils % 0.6 %; Eosinophils % 0.3 %; Hematocrit 35.9 % (37.5-50.1); Hemoglobin 11.6 g/dL (12.9-16.9); Immature Granulocytes % 0.6 % (0-4); Lymphocytes # 1.7 K/mcL (0.6-4.6); Lymphocytes % 23.3 %; Mean Corpuscular HGB Conc 32.3 g/dL (31.6-35.5); Mean Corpuscular Hemoglobin 28.2 pg (28.0-33.3); Mean Corpuscular Volume 87.3 fL (83.0-100.0); Mean Platelet Volume 9.9 fL (9.4-12.4); Monocytes # 0.4 K/mcL (0.0-1.3); Monocytes % 5.2 %; Platelet Count 227 K/mcL (140-400); Red Blood Count 4.11 M/mcL (4.19-5.50); Red Cell Distribution Width 17.9 % (11.5-14.5); White Blood Count 7.1 K/mcL (4.3-11.1)
[2019-08-05 05:34] LABS: BUN/Creatinine Ratio 18 (6-26); Blood Urea Nitrogen 20 mg/dL (8-23); Calcium 9.1 mg/dL (8.6-10.3); Carbon Dioxide 28 mEq/L (23-29); Chloride 107 mEq/L (98-107); Glucose 152 mg/dL (70-105); Osmolality,Calculated 302 (280-300); Potassium 3.1 mEq/L (3.5-5.1); Sodium 143 mEq/L (136-145); eGFR For African Americans > 60 (> 60); eGFR For Non-African Americans > 60 (> 60)
[2019-08-05] MEDS: *HR* Heparin 5,000 UNIT/ML VIAL SQ SCH ×2 (05:57→17:29)
[2019-08-05] MEDS ORDERED: Potassium Chloride 40 MEQ, Lidocaine 1% 2 ML in 0.9 % Sodium Chloride 500 ML IVPB ONE (08:41)
[2019-08-05] MEDS: hydrALAZINE 25 MG TABLET PO SCH ×3 (09:15→20:25)
[2019-08-05] MEDS: Gabapentin 300 MG CAPSULE PO SCH ×3 (09:16→20:26)
[2019-08-05] MEDS: Furosemide 20 MG TABLET PO SCH (09:16)
[2019-08-05] MEDS: amLODIPine 5 MG TABLET PO SCH (09:16)
[2019-08-05] MEDS: Lisinopril 20 MG TABLET PO SCH ×2 (09:16→20:26)
[2019-08-05] MEDS: predniSONE 20 MG TABLET PO SCH (09:16)
[2019-08-05] MEDS: Aspirin Enteric Coated 81 MG Tablet PO SCH (09:17)
[2019-08-05] MEDS: Budesonide/Formoterol 160/4.5 1 PUFF INH IH SCH ×2 (10:13→22:05)
[2019-08-05] MEDS ORDERED: 0.9 % Sodium Chloride 500 ML ONE (10:28)
[2019-08-05] MEDS ORDERED: *HR* Midazolam HCl 2 MG/2 ML VIAL IVP ONE (10:31)
[2019-08-05] MEDS ORDERED: *HR* Midazolam HCl 2 MG/2 ML VIAL ONE (10:31)
[2019-08-05] MEDS ORDERED: *HR* FentaNYL (PF) 100 MCG/2 ML VIAL IVP ONE (10:31)
[2019-08-05] MEDS ORDERED: *HR* FentaNYL (PF) 100 MCG/2 ML VIAL ONE (10:32)
[2019-08-05] MEDS: tiZANidine 4 MG TABLET PO PRN (20:25)
[2019-08-05] MEDS: Insulin DETEMIR 100 UNIT/ML X5UNITS SQ SCH (20:25)
[2019-08-06] MEDS: Insulin LISPRO 300 UNITS/3 ML VIAL SQ SCH ×4 (00:19→17:47)
[2019-08-06] MEDS: Ipratropium/Albuterol Neb 3 ML IH SCH ×4 (03:56→21:48)
[2019-08-06] MEDS: *HR* Heparin 5,000 UNIT/ML VIAL SQ SCH ×2 (05:55→17:47)
[2019-08-06] MEDS: Gabapentin 300 MG CAPSULE PO SCH ×3 (09:13→20:32)
[2019-08-06] MEDS: Aspirin Enteric Coated 81 MG Tablet PO SCH (09:13)
[2019-08-06] MEDS: predniSONE 20 MG TABLET PO SCH (09:13)
[2019-08-06] MEDS: amLODIPine 5 MG TABLET PO SCH (09:13)
[2019-08-06] MEDS: Lisinopril 20 MG TABLET PO SCH ×2 (09:14→20:32)
[2019-08-06] MEDS: Furosemide 20 MG TABLET PO SCH (09:14)
[2019-08-06] MEDS: hydrALAZINE 25 MG TABLET PO SCH ×3 (09:14→20:32)
[2019-08-06 10:48] LABS: BUN/Creatinine Ratio 15 (6-26); Blood Urea Nitrogen 17 mg/dL (8-23); Calcium 9.4 mg/dL (8.6-10.3); Carbon Dioxide 30 mEq/L (23-29); Chloride 101 mEq/L (98-107); Glucose 189 mg/dL (70-105); Magnesium 2.1 mg/dL (1.6-2.6); Osmolality,Calculated 299 (280-300); Potassium 3.1 mEq/L (3.5-5.1); Sodium 141 mEq/L (136-145); eGFR For African Americans > 60 (> 60); eGFR For Non-African Americans > 60 (> 60)
[2019-08-06] MEDS: Budesonide/Formoterol 160/4.5 1 PUFF INH IH SCH ×2 (11:14→21:48)
[2019-08-06] MEDS ORDERED: Insulin DETEMIR 100 UNIT/ML X5UNITS SQ SCH (21:00)
[2019-08-07 01:22] LABS: Basophils % 0.4 %; Eosinophils % 0.3 %; Hemoglobin 12.6 g/dL (12.9-16.9); Immature Granulocytes % 0.5 % (0-4); Lymphocytes # 1.3 K/mcL (0.6-4.6); Lymphocytes % 15.9 %; Mean Corpuscular HGB Conc 31.5 g/dL (31.6-35.5); Mean Corpuscular Hemoglobin 28.3 pg (28.0-33.3); Mean Corpuscular Volume 89.7 fL (83.0-100.0); Mean Platelet Volume 10.4 fL (9.4-12.4); Monocytes # 0.4 K/mcL (0.0-1.3); Monocytes % 4.8 %; Neutrophils # 6.2 K/mcL (1.6-8.9); Platelet Count 257 K/mcL (140-400); Red Blood Count 4.46 M/mcL (4.19-5.50); Red Cell Distribution Width 17.2 % (11.5-14.5); Segmented Neutrophils % 78.1 %; White Blood Count 7.9 K/mcL (4.3-11.1)
[2019-08-07 01:42] LABS: BUN/Creatinine Ratio 22 (6-26); Blood Urea Nitrogen 23 mg/dL (8-23); Calcium 9.3 mg/dL (8.6-10.3); Carbon Dioxide 23 mEq/L (23-29); Chloride 106 mEq/L (98-107); Glucose 163 mg/dL (70-105); Osmolality,Calculated 295 (280-300); Potassium 3.5 mEq/L (3.5-5.1); Sodium 139 mEq/L (136-145); eGFR For African Americans > 60 (> 60); eGFR For Non-African Americans > 60 (> 60)
[2019-08-07] MEDS: Ipratropium/Albuterol Neb 3 ML IH SCH ×4 (03:22→22:18)
[2019-08-07] MEDS: Insulin LISPRO 300 UNITS/3 ML VIAL SQ SCH ×4 (04:28→20:15)
[2019-08-07] MEDS: *HR* Heparin 5,000 UNIT/ML VIAL SQ SCH ×2 (05:55→17:52)
[2019-08-07] MEDS: hydrALAZINE 25 MG TABLET PO SCH ×3 (09:19→20:17)
[2019-08-07] MEDS: Gabapentin 300 MG CAPSULE PO SCH ×3 (09:19→20:17)
[2019-08-07] MEDS: Furosemide 20 MG TABLET PO SCH (09:19)
[2019-08-07] MEDS: predniSONE 20 MG TABLET PO SCH (09:20)
[2019-08-07] MEDS: amLODIPine 5 MG TABLET PO SCH (09:20)
[2019-08-07] MEDS: Aspirin Enteric Coated 81 MG Tablet PO SCH (09:20)
[2019-08-07] MEDS: Lisinopril 20 MG TABLET PO SCH ×2 (09:20→20:17)
[2019-08-07] MEDS: Budesonide/Formoterol 160/4.5 1 PUFF INH IH SCH ×2 (10:56→22:18)
[2019-08-07] MEDS: Insulin DETEMIR 100 UNIT/ML X5UNITS SQ SCH (20:17)
[2019-08-08 03:10] LABS: BUN/Creatinine Ratio 23 (6-26); Blood Urea Nitrogen 27 mg/dL (8-23); Calcium 8.8 mg/dL (8.6-10.3); Carbon Dioxide 26 mEq/L (23-29); Chloride 103 mEq/L (98-107); Glucose 192 mg/dL (70-105); Osmolality,Calculated 296 (280-300); Potassium 3.4 mEq/L (3.5-5.1); Sodium 138 mEq/L (136-145); eGFR For African Americans > 60 (> 60); eGFR For Non-African Americans > 60 (> 60)
[2019-08-08] MEDS: Ipratropium/Albuterol Neb 3 ML IH SCH ×2 (03:44→11:35)
[2019-08-08] MEDS: *HR* Heparin 5,000 UNIT/ML VIAL SQ SCH ×2 (05:52→18:13)
[2019-08-08] MEDS: Insulin LISPRO 300 UNITS/3 ML VIAL SQ SCH ×4 (09:09→21:00)
[2019-08-08] MEDS: Aspirin Enteric Coated 81 MG Tablet PO SCH (09:10)
[2019-08-08] MEDS: hydrALAZINE 25 MG TABLET PO SCH ×3 (09:10→21:01)
[2019-08-08] MEDS: Furosemide 20 MG TABLET PO SCH (09:10)
[2019-08-08] MEDS: amLODIPine 5 MG TABLET PO SCH (09:11)
[2019-08-08] MEDS: Lisinopril 20 MG TABLET PO SCH ×2 (09:11→21:01)
[2019-08-08] MEDS: Gabapentin 300 MG CAPSULE PO SCH ×3 (09:11→21:00)
[2019-08-08] MEDS: predniSONE 20 MG TABLET PO SCH (09:18)
[2019-08-08] MEDS: Budesonide/Formoterol 160/4.5 1 PUFF INH IH SCH ×2 (11:35→21:11)
[2019-08-08] MEDS ORDERED: Ipratropium/Albuterol Neb 3 ML IH PRN (11:50)
[2019-08-08] MEDS: Insulin DETEMIR 100 UNIT/ML X5UNITS SQ SCH (21:01)
[2019-08-09 02:25] LABS: BUN/Creatinine Ratio 21 (6-26); Blood Urea Nitrogen 24 mg/dL (8-23); Calcium 8.8 mg/dL (8.6-10.3); Carbon Dioxide 28 mEq/L (23-29); Chloride 105 mEq/L (98-107); Glucose 136 mg/dL (70-105); Osmolality,Calculated 294 (280-300); Potassium 3.7 mEq/L (3.5-5.1); Sodium 139 mEq/L (136-145); eGFR For African Americans > 60 (> 60); eGFR For Non-African Americans > 60 (> 60)
[2019-08-09] MEDS: *HR* Heparin 5,000 UNIT/ML VIAL SQ SCH ×2 (05:08→18:27)
[2019-08-09] MEDS: Budesonide/Formoterol 160/4.5 1 PUFF INH IH SCH ×2 (07:50→20:11)
[2019-08-09] MEDS: Gabapentin 300 MG CAPSULE PO SCH ×3 (08:52→20:24)
[2019-08-09] MEDS: Furosemide 20 MG TABLET PO SCH (08:52)
[2019-08-09] MEDS: Aspirin Enteric Coated 81 MG Tablet PO SCH (08:52)
[2019-08-09] MEDS: hydrALAZINE 25 MG TABLET PO SCH ×3 (08:52→20:24)
[2019-08-09] MEDS: amLODIPine 5 MG TABLET PO SCH (08:53)
[2019-08-09] MEDS: Insulin LISPRO 300 UNITS/3 ML VIAL SQ SCH ×4 (08:53→20:24)
[2019-08-09] MEDS: Lisinopril 20 MG TABLET PO SCH ×2 (08:53→20:24)
[2019-08-09] MEDS: Insulin DETEMIR 100 UNIT/ML X5UNITS SQ SCH (20:24)
[2019-08-10 04:42] LABS: Hematocrit 38.5 % (37.5-50.1); Hemoglobin 12.6 g/dL (12.9-16.9); Mean Corpuscular HGB Conc 32.7 g/dL (31.6-35.5); Mean Corpuscular Hemoglobin 28.6 pg (28.0-33.3); Mean Corpuscular Volume 87.5 fL (83.0-100.0); Mean Platelet Volume 10.3 fL (9.4-12.4); Platelet Count 226 K/mcL (140-400); Red Cell Distribution Width 16.7 % (11.5-14.5); White Blood Count 7.9 K/mcL (4.3-11.1)
[2019-08-10 04:53] LABS: INR 1.2; Prothrombin Time 13.5 Seconds (9.4-12.1)
[2019-08-10 05:05] LABS: BUN/Creatinine Ratio 19 (6-26); Blood Urea Nitrogen 22 mg/dL (8-23); Calcium 8.8 mg/dL (8.6-10.3); Carbon Dioxide 28 mEq/L (23-29); Chloride 106 mEq/L (98-107); Glucose 141 mg/dL (70-105); Osmolality,Calculated 292 (280-300); Potassium 3.6 mEq/L (3.5-5.1); Sodium 138 mEq/L (136-145); eGFR For African Americans > 60 (> 60); eGFR For Non-African Americans > 60 (> 60)
[2019-08-10] MEDS: *HR* Heparin 5,000 UNIT/ML VIAL SQ SCH (05:57)
[2019-08-10] MEDS: Budesonide/Formoterol 160/4.5 1 PUFF INH IH SCH (07:43)
[2019-08-10] MEDS: Insulin LISPRO 300 UNITS/3 ML VIAL SQ SCH (08:49)
[2019-08-10] MEDS: Lisinopril 20 MG TABLET PO SCH (09:54)
[2019-08-10] MEDS: amLODIPine 5 MG TABLET PO SCH (09:54)
[2019-08-10] MEDS: Furosemide 20 MG TABLET PO SCH (09:54)
[2019-08-10] MEDS: Gabapentin 300 MG CAPSULE PO SCH (09:55)
[2019-08-10] MEDS: hydrALAZINE 25 MG TABLET PO SCH (09:55)
[2019-08-10] MEDS: Aspirin Enteric Coated 81 MG Tablet PO SCH (09:55)
[2019-08-10 11:13] VITALS: BP 111/53
== END 2019-08-10 13:32 | disposition home or self-care (01) | DRG 191 ==
LOC: EMEROOARM 16:34 → 3BNU 16:34 → SUATTDRO 08-06 16:47
PROVIDERS: ADMIT Family Medicine; ATTEND Internal Medicine

== ENCOUNTER 2019-11-19 07:05 | Inpatient (IN) ==
[2019-11-19] MEDS ORDERED: CeFAZolin Syr 2,000MG/20 ML 2,000 MG/20 ML SYRINGE IVPB ONE (07:53)
[2019-11-19] MEDS ORDERED: CeFAZolin Syr 3,000MG/30 ML 3,000 MG/30 ML SYRINGE IVPB ONE (07:57)
[2019-11-19] MEDS ORDERED: Ringers Solution, Lactated 1,000 ML IVC SCH (08:00)
[2019-11-19] MEDS ORDERED: Famotidine 20 MG/2 ML VIAL IVP ONE (08:04)
[2019-11-19] MEDS ORDERED: Gabapentin 300 MG CAPSULE PO ONE (08:04)
[2019-11-19] MEDS ORDERED: *HR* Metoprolol 5 MG/5 ML VIAL IVP PRN (08:04)
[2019-11-19] MEDS ORDERED: Ondansetron 4 MG/2 ML VIAL IVP ONE (08:04)
[2019-11-19] MEDS ORDERED: *HR* OxyCODONE Immed Rel 5 MG TABLET PO PRN (08:04)
[2019-11-19] MEDS ORDERED: Acetaminophen IV 1,000 MG/100 ML INFUS..BTL IVPB ONE (08:04)
[2019-11-19] MEDS ORDERED: *HR* Promethazine 25 MG/ML VIAL IVP PRN (08:04)
[2019-11-19] MEDS ORDERED: Albuterol 2.5 MG/3 ML NEBULIZER IH PRN (08:04)
[2019-11-19] MEDS ORDERED: *HR* HYDROmorphone (PF) 1 MG/ML SYRINGE IVP PRN (08:08)
[2019-11-19] MEDS ORDERED: carvediloL 6.25 MG TABLET PO ONE (08:25)
[2019-11-19] MEDS ORDERED: *HR* FentaNYL (PF) 100 MCG/2 ML VIAL ONE ×2 (08:42→09:25)
[2019-11-19] MEDS ORDERED: Dexamethasone 4 MG/ML VIAL ONE (08:43)
[2019-11-19] MEDS ORDERED: *HR* Propofol 200 MG/20 ML VIAL IVP ONE (08:45)
[2019-11-19] MEDS ORDERED: *HR* PHENYLEPHRINE 1,000 MCG/10 ML SYRINGE IVP ONE (08:45)
[2019-11-19] MEDS ORDERED: EPHEDrine 50 MG/ML VIAL ONE (09:03)
[2019-11-19] MEDS ORDERED: Lidocaine -MPF 4% 5 ML AMPUL ONE (09:19)
[2019-11-19] MEDS ORDERED: Ketorolac 30 MG/ML VIAL ONE (10:19)
[2019-11-19] MEDS ORDERED: Ondansetron 4 MG/2 ML VIAL ONE (10:19)
[2019-11-19] MEDS ORDERED: Naloxone 0.4 MG/ML INJ IVP PRN (11:06)
[2019-11-19] MEDS: Ipratropium/Albuterol Neb 3 ML IH SCH ×3 (12:06→20:10)
[2019-11-19] MEDS: *HR* Heparin 5,000 UNIT/ML VIAL SQ SCH ×2 (13:06→22:01)
[2019-11-19] MEDS: 0.9 % Sodium Chloride 1,000 ML IVC SCH (13:15)
[2019-11-19] MEDS: Ranolazine 500 MG TAB.ER.12H PO SCH ×2 (13:15→22:22)
[2019-11-19] MEDS: hydrALAZINE 25 MG TABLET PO SCH ×2 (14:13→20:33)
[2019-11-19] MEDS: *HR* HYDROcodone/Acet 5/325 mg TABLET PO PRN ×2 (14:13→22:57)
[2019-11-19] MEDS: Gabapentin 300 MG CAPSULE PO SCH ×2 (14:13→20:33)
[2019-11-19] MEDS: tiZANidine 4 MG TABLET PO SCH ×2 (14:13→20:34)
[2019-11-19] MEDS ORDERED: *HR* HYDROcodone/Acet 5/325 mg TABLET PO ONE (15:21)
[2019-11-19] MEDS ORDERED: Nitroglycerin 0.4 MG TAB.SUBL SL ONE (15:35)
[2019-11-19] MEDS: Nitroglycerin 0.4 MG TAB.SUBL SL PRN ×2 (15:38→21:59)
[2019-11-19] MEDS ORDERED: Isosorbide MONOnitrate (24 HR) 30 MG TAB.ER.24H PO ONE (16:05)
[2019-11-19 16:41] LABS: Troponin I < 0.03 ng/mL (< 0.04)
[2019-11-19] MEDS: carvediloL 25 MG TABLET PO SCH (17:00)
[2019-11-19] MEDS ORDERED: amLODIPine 5 MG TABLET PO ONE (17:06)
[2019-11-19] MEDS ORDERED: lisinopriL 20 MG TABLET PO ONE (17:06)
[2019-11-19] MEDS ORDERED: carvediloL 25 MG TABLET PO ONE (20:00)
[2019-11-19] MEDS ORDERED: Isosorbide MONOnitrate (24 HR) 60 MG TAB.ER.24H PO ONE (20:00)
[2019-11-19] MEDS: Budesonide/Formoterol 160/4.5 1 PUFF INH IH SCH (20:19)
[2019-11-19] MEDS: Famotidine 20 MG TABLET PO SCH (20:33)
[2019-11-19 22:43] LABS: Creatine Kinase 195 Units/L (30-223)
[2019-11-19 22:46] LABS: Creatine Kinase 237 Units/L (30-223)
[2019-11-19 22:47] LABS: Troponin I < 0.03 ng/mL (< 0.04)
[2019-11-20] MEDS: Ipratropium/Albuterol Neb 3 ML IH SCH ×7 (00:13→23:58)
[2019-11-20] MEDS: 0.9 % Sodium Chloride 1,000 ML IVC SCH ×2 (02:01→17:07)
[2019-11-20 04:40] LABS: Hematocrit 33.4 % (37.5-50.1); Hemoglobin 10.2 g/dL (12.9-16.9); Mean Corpuscular HGB Conc 30.5 g/dL (31.6-35.5); Mean Corpuscular Hemoglobin 27.5 pg (28.0-33.3); Platelet Count 252 K/mcL (140-400); Red Blood Count 3.71 M/mcL (4.19-5.50); White Blood Count 10.8 K/mcL (4.3-11.1)
[2019-11-20 05:02] LABS: BUN/Creatinine Ratio 14 (6-26); Blood Urea Nitrogen 19 mg/dL (8-23); Calcium 8.7 mg/dL (8.6-10.3); Carbon Dioxide 25 mEq/L (23-29); Chloride 105 mEq/L (98-107); Creatine Kinase 285 Units/L (30-223); Glucose 166 mg/dL (70-105); Osmolality,Calculated 290 (280-300); Potassium 3.6 mEq/L (3.5-5.1); Sodium 137 mEq/L (136-145); eGFR For African Americans > 60 (> 60); eGFR For Non-African Americans 53 (> 60)
[2019-11-20] MEDS: *HR* Heparin 5,000 UNIT/ML VIAL SQ SCH ×3 (05:39→22:08)
[2019-11-20] MEDS: Budesonide/Formoterol 160/4.5 1 PUFF INH IH SCH ×2 (07:32→20:14)
[2019-11-20] MEDS: *HR* HYDROcodone/Acet 5/325 mg TABLET PO PRN ×2 (07:44→16:57)
[2019-11-20] MEDS: *HR* Pioglitazone 15 MG TABLET PO SCH (07:45)
[2019-11-20] MEDS: Famotidine 20 MG TABLET PO SCH ×2 (07:45→20:10)
[2019-11-20] MEDS: hydrALAZINE 25 MG TABLET PO SCH ×3 (07:45→20:10)
[2019-11-20] MEDS: Gabapentin 300 MG CAPSULE PO SCH ×3 (07:45→20:11)
[2019-11-20] MEDS: lisinopriL 20 MG TABLET PO SCH (07:45)
[2019-11-20] MEDS: Furosemide 40 MG TABLET PO SCH (07:45)
[2019-11-20] MEDS: amLODIPine 5 MG TABLET PO SCH (07:45)
[2019-11-20] MEDS: Aspirin Enteric Coated 81 MG Tablet PO SCH (07:45)
[2019-11-20] MEDS: Isosorbide MONOnitrate (24 HR) 30 MG TAB.ER.24H PO SCH (07:46)
[2019-11-20] MEDS: tiZANidine 4 MG TABLET PO SCH ×3 (07:46→20:10)
[2019-11-20] MEDS: carvediloL 25 MG TABLET PO SCH ×2 (07:46→16:52)
[2019-11-20] MEDS ORDERED: Isosorbide MONOnitrate (24 HR) 60 MG TAB.ER.24H PO SCH (09:00)
[2019-11-20] MEDS ORDERED: Isosorbide MONOnitrate (24 HR) 30 MG TAB.ER.24H PO SCH (09:00)
[2019-11-20] MEDS: Ranolazine 500 MG TAB.ER.12H PO SCH ×2 (11:09→22:08)
[2019-11-20] MEDS ORDERED: Isosorbide MONOnitrate (24 HR) 30 MG TAB.ER.24H PO ONE (20:00)
[2019-11-21 02:05] LABS: BUN/Creatinine Ratio 17 (6-26); Blood Urea Nitrogen 19 mg/dL (8-23); Carbon Dioxide 26 mEq/L (23-29); Chloride 107 mEq/L (98-107); Glucose 125 mg/dL (70-105); Osmolality,Calculated 294 (280-300); Sodium 140 mEq/L (136-145); eGFR For African Americans > 60 (> 60); eGFR For Non-African Americans > 60 (> 60)
[2019-11-21] MEDS: Ipratropium/Albuterol Neb 3 ML IH SCH ×2 (03:44→07:22)
[2019-11-21] MEDS: *HR* Heparin 5,000 UNIT/ML VIAL SQ SCH (05:42)
[2019-11-21] MEDS: Budesonide/Formoterol 160/4.5 1 PUFF INH IH SCH (07:23)
[2019-11-21] MEDS: Isosorbide MONOnitrate (24 HR) 30 MG TAB.ER.24H PO SCH (08:11)
[2019-11-21] MEDS: Famotidine 20 MG TABLET PO SCH (08:11)
[2019-11-21] MEDS: Aspirin Enteric Coated 81 MG Tablet PO SCH (08:11)
[2019-11-21] MEDS: carvediloL 25 MG TABLET PO SCH (08:12)
[2019-11-21] MEDS: hydrALAZINE 25 MG TABLET PO SCH (08:12)
[2019-11-21] MEDS: Gabapentin 300 MG CAPSULE PO SCH (08:12)
[2019-11-21] MEDS: Furosemide 40 MG TABLET PO SCH (08:12)
[2019-11-21] MEDS: tiZANidine 4 MG TABLET PO SCH (08:12)
[2019-11-21] MEDS: *HR* Pioglitazone 15 MG TABLET PO SCH (08:12)
[2019-11-21] MEDS: amLODIPine 5 MG TABLET PO SCH (08:12)
[2019-11-21] MEDS: lisinopriL 20 MG TABLET PO SCH (08:12)
[2019-11-21 15:21] VITALS: BP 173/90
== END 2019-11-21 10:45 | disposition home or self-care (01) | DRG 164 ==
LOC: SAMDAY 07:05 → 2NNU 11:01
PROVIDERS: ADMIT Thoracic Surgery (Cardiothoracic Vascular Surgery); ATTEND Thoracic Surgery (Cardiothoracic Vascular Surgery)

== ENCOUNTER 2022-03-22 19:57 | Inpatient (IN) ==
[2022-03-23] MEDS ORDERED: Naloxone 0.4 MG/ML INJ IVP PRN ×2 (00:05→13:10)
[2022-03-23] MEDS ORDERED: Ondansetron 4 MG/2 ML VIAL IVP PRN (00:05)
[2022-03-23] MEDS ORDERED: Melatonin 3 MG TABLET PO PRN (00:05)
[2022-03-23] MEDS ORDERED: Acetaminophen 325 MG TABLET PO PRN ×2 (00:05→13:10)
[2022-03-23] MEDS ORDERED: *HR* Dextrose 50 % in Water (Syg) 50 ML SYRINGE IVP PRN ×2 (00:10→13:10)
[2022-03-23] MEDS ORDERED: D5% in Water 1,000 ML IVC PRN ×2 (00:10→13:10)
[2022-03-23] MEDS ORDERED: Dextrose Gel 15 GM/37.5 ML TUBE PO PRN ×4 (00:10→13:10)
[2022-03-23] MEDS ORDERED: Ipratropium/Albuterol Neb 3 ML IH PRN ×2 (01:06→13:10)
[2022-03-23 01:21] LABS: Basophils % 0.3 %; Eosinophils % 0.2 %; Hematocrit 32.9 % (37.5-50.1); Hemoglobin 10.2 g/dL (12.9-16.9); Immature Granulocytes % 0.6 % (0-4); Lymphocytes # 0.5 K/mcL (0.6-4.6); Lymphocytes % 8.1 %; Mean Corpuscular Hemoglobin 27.6 pg (28.0-33.3); Mean Corpuscular Volume 89.2 fL (83.0-100.0); Mean Platelet Volume 10.1 fL (9.4-12.4); Monocytes # 0.5 K/mcL (0.0-1.3); Monocytes % 7.5 %; Neutrophils # 5.5 K/mcL (1.6-8.9); Platelet Count 237 K/mcL (140-400); Red Blood Count 3.69 M/mcL (4.19-5.50); Red Cell Distribution Width 15.6 % (11.5-14.5); Segmented Neutrophils % 83.3 %; White Blood Count 6.6 K/mcL (4.3-11.1)
[2022-03-23 01:28] LABS: INR 1.5; Prothrombin Time 16.9 Seconds (9.4-12.1)
[2022-03-23 01:37] LABS: Albumin 3.1 g/dL (3.5-5.7); Calcium 8.6 mg/dL (8.6-10.3); Magnesium 1.9 mg/dL (1.6-2.6); Phosphorous 9.3 mg/dL (2.7-4.5); Potassium 4.9 mEq/L (3.5-5.1)
[2022-03-23 01:40] LABS: Troponin I 0.03 ng/mL (< 0.04)
[2022-03-23] MEDS: Ringers Solution, Lactated 1,000 ML IVC SCH ×2 (01:41→09:33)
[2022-03-23 03:47] LABS: Bacteria,Urine Few per hpf (None-Few); Bilirubin,Urine Negative (Negative); Blood,Urine Trace (Negative); Clarity,Urine Turbid (Clear); Color,Urine Light-Orange (Yellow); Glucose,Urine (UA) Normal (Normal); Ketones,Urine Negative (Negative); Leukocyte Esterase,Urine Negative (Negative); Nitrite,Urine Negative (Negative); Protein,Urine 30 mg/dL (Neg-Trace); Urobilinogen,Urine Normal (Normal)
[2022-03-23 03:58] LABS: Sodium, Urine 18.4 mEq/L
[2022-03-23] MEDS ORDERED: tiZANidine 4 MG TABLET PO ONE (04:11)
[2022-03-23 04:23] LABS: Protein/Creatinine Ratio,Urine 0.17 mg/mg (0.00-0.20)
[2022-03-23] MEDS: Insulin LISPRO 300 UNITS/3 ML VIAL SUBQ SCH ×3 (05:19→16:51)
[2022-03-23 08:43] LABS: Uric Acid 14.1 mg/dL (2.3-7.6)
[2022-03-23] MEDS ORDERED: cefTRIAXone 1,000 MG in 0.9 % Sodium Chloride 10 ML IVP SCH (08:55)
[2022-03-23] MEDS ORDERED: Iopamidol - 300 50 ML VIAL ONE (10:05)
[2022-03-23] MEDS ORDERED: Lidocaine -MPF 2% 2 ML VIAL ONE (10:09)
[2022-03-23] MEDS ORDERED: *HR* Propofol 200 MG/20 ML VIAL IVP ONE (10:09)
[2022-03-23] MEDS ORDERED: Famotidine 20 MG/2 ML VIAL ONE (10:44)
[2022-03-23] MEDS ORDERED: Ondansetron 4 MG/2 ML VIAL ONE (11:16)
[2022-03-23] MEDS ORDERED: Furosemide 40 MG/4 ML VIAL IVP SCH (12:00)
[2022-03-23] MEDS ORDERED: Furosemide 40 MG TABLET PO SCH (12:45)
[2022-03-23] MEDS ORDERED: Ringers Solution, Lactated 1,000 ML IVC SCH (13:10)
[2022-03-23] MEDS ORDERED: Perflutren Lipid Microsphere 1.3 ML in 0.9 % Sodium Chloride 8.7 ML IVP PRN (15:24)
[2022-03-23] MEDS: Isosorbide MONOnitrate (24 HR) 30 MG TAB.ER.24H PO SCH (16:07)
[2022-03-23 16:25] LABS: Total Protein,Peritoneal Fluid 3.6 g/dL
[2022-03-23 16:53] LABS: RBC,Peritoneal Fluid 3000 RBC/mcL
[2022-03-23 17:02] LABS: Appearance of Peritoneal Fl HAZY (Clear)
[2022-03-23] MEDS: Ondansetron 4 MG/2 ML VIAL IVP PRN (17:13)
[2022-03-23] MEDS ORDERED: Insulin LISPRO 300 UNITS/3 ML VIAL SUBQ SCH (18:00)
[2022-03-23] MEDS: Melatonin 3 MG TABLET PO PRN (20:12)
[2022-03-24 05:58] LABS: Basophils % 0.1 %; Hematocrit 35.5 % (37.5-50.1); Hemoglobin 10.8 g/dL (12.9-16.9); Immature Granulocytes % 0.7 % (0-4); Lymphocytes # 0.4 K/mcL (0.6-4.6); Lymphocytes % 5.5 %; Mean Corpuscular HGB Conc 30.4 g/dL (31.6-35.5); Mean Corpuscular Hemoglobin 27.6 pg (28.0-33.3); Mean Corpuscular Volume 90.8 fL (83.0-100.0); Mean Platelet Volume 10.6 fL (9.4-12.4); Monocytes # 0.5 K/mcL (0.0-1.3); Monocytes % 6.8 %; Neutrophils # 6.5 K/mcL (1.6-8.9); Platelet Count 258 K/mcL (140-400); Red Blood Count 3.91 M/mcL (4.19-5.50); Red Cell Distribution Width 15.6 % (11.5-14.5); Segmented Neutrophils % 86.9 %; White Blood Count 7.5 K/mcL (4.3-11.1)
[2022-03-24 06:15] LABS: Calcium 8.7 mg/dL (8.6-10.3); Magnesium 1.9 mg/dL (1.6-2.6); Potassium 5.4 mEq/L (3.5-5.1)
[2022-03-24] MEDS: Insulin LISPRO 300 UNITS/3 ML VIAL SUBQ SCH ×3 (07:04→17:36)
[2022-03-24] MEDS: Isosorbide MONOnitrate (24 HR) 30 MG TAB.ER.24H PO SCH (07:26)
[2022-03-24] MEDS ORDERED: Albumin 25% 25gram/100mL 25 GM/100 ML IV.SOLN IVPB SCH ×2 (08:00→16:00)
[2022-03-24 11:19] LABS: Hepatitis B Surface Antibody < 3.10 mIU/mL
[2022-03-24 11:29] LABS: Hepatitis B Surface Antigen Nonreactive (Nonreactive)
[2022-03-24] MEDS ORDERED: 0.9 % Sodium Chloride 250 ML IVC PRN (11:53)
[2022-03-24] MEDS ORDERED: *HR* Heparin 10,000 UNIT/10 ML VIAL IV PRN (11:53)
[2022-03-24] MEDS ORDERED: 0.9 % Sodium Chloride 2,000 ML PRIME SCH (12:00)
[2022-03-24] MEDS: Gabapentin 300 MG CAPSULE PO SCH ×2 (13:41→19:39)
[2022-03-24] MEDS: Ranolazine 500 MG TAB.ER.12H PO SCH (13:41)
[2022-03-24] MEDS: Albumin 25% 25gram/100mL 25 GM/100 ML IV.SOLN IVPB SCH (19:39)
[2022-03-24 23:56] LABS: Creatinine,Urine 124 mg/dL; Microalbumin,Urine > 1350 mg/L; Protein/Creatinine Ratio,Urine 10.27 mg/mg (0.00-0.20)
[2022-03-25] MEDS: Ranolazine 500 MG TAB.ER.12H PO SCH ×3 (01:32→23:41)
[2022-03-25] MEDS: Albumin 25% 25gram/100mL 25 GM/100 ML IV.SOLN IVPB SCH ×3 (03:27→20:22)
[2022-03-25 04:18] LABS: Basophils % 0.2 %; Hematocrit 30.2 % (37.5-50.1); Hemoglobin 9.6 g/dL (12.9-16.9); Immature Granulocytes % 0.5 % (0-4); Lymphocytes # 0.4 K/mcL (0.6-4.6); Lymphocytes % 6.2 %; Mean Corpuscular HGB Conc 31.8 g/dL (31.6-35.5); Mean Corpuscular Hemoglobin 27.6 pg (28.0-33.3); Mean Corpuscular Volume 86.8 fL (83.0-100.0); Mean Platelet Volume 10.5 fL (9.4-12.4); Monocytes # 0.7 K/mcL (0.0-1.3); Monocytes % 10.9 %; Neutrophils # 5.2 K/mcL (1.6-8.9); Platelet Count 232 K/mcL (140-400); Red Blood Count 3.48 M/mcL (4.19-5.50); Red Cell Distribution Width 15.3 % (11.5-14.5); Segmented Neutrophils % 82.2 %; White Blood Count 6.3 K/mcL (4.3-11.1)
[2022-03-25 04:30] LABS: Complement C3 130 mg/dL (87-200)
[2022-03-25 04:39] LABS: Calcium 8.6 mg/dL (8.6-10.3); Magnesium 1.9 mg/dL (1.6-2.6); Phosphorous 7.5 mg/dL (2.7-4.5); Potassium 4.5 mEq/L (3.5-5.1); Rheumatoid Factor < 10 IU/mL (Less than 14)
[2022-03-25 04:53] LABS: Thyroid Stimulating Hormone 3.304 mcIU/mL (0.340-5.600)
[2022-03-25 05:03] LABS: Folate 4.6 ng/mL (3.0-16.0); Vitamin B12 600 pg/mL (250-1100)
[2022-03-25 05:04] LABS: Vitamin D 25 Hydroxy 10 ng/mL (30-80)
[2022-03-25] MEDS: Insulin LISPRO 300 UNITS/3 ML VIAL SUBQ SCH ×3 (07:02→16:31)
[2022-03-25] MEDS: Isosorbide MONOnitrate (24 HR) 30 MG TAB.ER.24H PO SCH (08:42)
[2022-03-25] MEDS: Fenofibrate 54 MG TABLET PO SCH (08:42)
[2022-03-25] MEDS: Gabapentin 300 MG CAPSULE PO SCH ×3 (08:42→21:38)
[2022-03-25] MEDS: amLODIPine 5 MG TABLET PO SCH (08:42)
[2022-03-25] MEDS: Ergocalciferol (VIT D2) 50,000 UNIT (1.25MG) CAP PO SCH (09:42)
[2022-03-25 14:03] LABS: Fluid Source for Albumin ASCITES
[2022-03-25] MEDS: hydrALAZINE 25 MG TABLET PO SCH ×2 (14:59→21:38)
[2022-03-25] MEDS: Melatonin 3 MG TABLET PO PRN (21:38)
[2022-03-26] MEDS: Albumin 25% 25gram/100mL 25 GM/100 ML IV.SOLN IVPB SCH ×3 (03:06→20:50)
[2022-03-26 03:47] LABS: Hematocrit 29.4 % (37.5-50.1); Hemoglobin 9.6 g/dL (12.9-16.9); Mean Corpuscular HGB Conc 32.7 g/dL (31.6-35.5); Mean Corpuscular Hemoglobin 28.4 pg (28.0-33.3); Mean Platelet Volume 10.5 fL (9.4-12.4); Platelet Count 213 K/mcL (140-400); Red Blood Count 3.38 M/mcL (4.19-5.50); Red Cell Distribution Width 15.4 % (11.5-14.5); White Blood Count 6.6 K/mcL (4.3-11.1)
[2022-03-26 04:08] LABS: Calcium 8.7 mg/dL (8.6-10.3); Potassium 4.3 mEq/L (3.5-5.1)
[2022-03-26] MEDS: Insulin LISPRO 300 UNITS/3 ML VIAL SUBQ SCH ×3 (08:05→15:46)
[2022-03-26] MEDS: Isosorbide MONOnitrate (24 HR) 30 MG TAB.ER.24H PO SCH (08:20)
[2022-03-26] MEDS: Gabapentin 300 MG CAPSULE PO SCH ×2 (08:20→20:51)
[2022-03-26] MEDS: hydrALAZINE 25 MG TABLET PO SCH ×3 (08:20→20:51)
[2022-03-26] MEDS: amLODIPine 5 MG TABLET PO SCH (08:20)
[2022-03-26] MEDS: Fenofibrate 54 MG TABLET PO SCH (08:20)
[2022-03-26] MEDS ORDERED: 0.9 % Sodium Chloride 250 ML IVC PRN (08:37)
[2022-03-26] MEDS ORDERED: *HR* Heparin 10,000 UNIT/10 ML VIAL IV PRN (08:37)
[2022-03-26 09:12] LABS: Albumin 3.6 g/dL (3.5-5.7); Albumin/Globulin Ratio 1.4 (1.1-2.2); Bilirubin,Direct 0.1 mg/dL (0.0-0.2); Bilirubin,Indirect 0.4 mg/dL (0.0-1.0); Bilirubin,Total 0.5 mg/dL (0.3-1.0); Globulin 2.5 g/dL (2.4-3.5); Total Protein 6.1 g/dL (6.4-8.9)
[2022-03-26] MEDS: Ranolazine 500 MG TAB.ER.12H PO SCH (11:36)
[2022-03-26] MEDS ORDERED: *HR* Propofol 200 MG/20 ML VIAL IVP ONE (13:06)
[2022-03-26] MEDS ORDERED: Lidocaine -MPF 2% 2 ML VIAL ONE (13:06)
[2022-03-26] MEDS ORDERED: *HR* FentaNYL (PF) 100 MCG/2 ML VIAL ONE (13:06)
[2022-03-26] MEDS ORDERED: Lidocaine -MPF 4% 5 ML AMPUL ONE (13:06)
[2022-03-26] MEDS ORDERED: Ondansetron 4 MG/2 ML VIAL ONE (13:06)
[2022-03-26] MEDS ORDERED: *HR* Vasopressin 20 UNIT/ML VIAL ONE (13:48)
[2022-03-26] MEDS: Melatonin 3 MG TABLET PO PRN (20:51)
[2022-03-27] MEDS: Ranolazine 500 MG TAB.ER.12H PO SCH ×2 (02:04→13:38)
[2022-03-27] MEDS: Albumin 25% 25gram/100mL 25 GM/100 ML IV.SOLN IVPB SCH ×5 (03:57→19:50)
[2022-03-27 06:34] LABS: Hematocrit 29.7 % (37.5-50.1); Hemoglobin 9.5 g/dL (12.9-16.9); Mean Corpuscular Hemoglobin 27.9 pg (28.0-33.3); Mean Corpuscular Volume 87.4 fL (83.0-100.0); Platelet Count 227 K/mcL (140-400); Red Cell Distribution Width 15.4 % (11.5-14.5); White Blood Count 8.7 K/mcL (4.3-11.1)
[2022-03-27] MEDS: Insulin LISPRO 300 UNITS/3 ML VIAL SUBQ SCH ×3 (06:58→15:46)
[2022-03-27 07:34] LABS: Calcium 9.4 mg/dL (8.6-10.3); Potassium 4.1 mEq/L (3.5-5.1)
[2022-03-27] MEDS: Isosorbide MONOnitrate (24 HR) 30 MG TAB.ER.24H PO SCH (07:43)
[2022-03-27] MEDS: amLODIPine 5 MG TABLET PO SCH (07:43)
[2022-03-27] MEDS: hydrALAZINE 25 MG TABLET PO SCH ×3 (07:43→19:51)
[2022-03-27] MEDS: Melatonin 3 MG TABLET PO PRN (19:51)
[2022-03-27] MEDS: Gabapentin 300 MG CAPSULE PO SCH (19:51)
[2022-03-28] MEDS: Ranolazine 500 MG TAB.ER.12H PO SCH ×2 (00:30→19:59)
[2022-03-28] MEDS: Albumin 25% 25gram/100mL 25 GM/100 ML IV.SOLN IVPB SCH (03:17)
[2022-03-28 06:00] LABS: Hematocrit 30.1 % (37.5-50.1); Hemoglobin 9.6 g/dL (12.9-16.9); Mean Corpuscular HGB Conc 31.9 g/dL (31.6-35.5); Mean Corpuscular Hemoglobin 27.9 pg (28.0-33.3); Mean Corpuscular Volume 87.5 fL (83.0-100.0); Mean Platelet Volume 10.7 fL (9.4-12.4); Platelet Count 240 K/mcL (140-400); Red Blood Count 3.44 M/mcL (4.19-5.50); Red Cell Distribution Width 15.8 % (11.5-14.5); White Blood Count 8.3 K/mcL (4.3-11.1)
[2022-03-28 07:50] LABS: Calcium 9.4 mg/dL (8.6-10.3)
[2022-03-28] MEDS: hydrALAZINE 25 MG TABLET PO SCH ×3 (10:12→19:59)
[2022-03-28] MEDS: Isosorbide MONOnitrate (24 HR) 30 MG TAB.ER.24H PO SCH (10:12)
[2022-03-28] MEDS: amLODIPine 5 MG TABLET PO SCH (10:12)
[2022-03-28] MEDS: Insulin LISPRO 300 UNITS/3 ML VIAL SUBQ SCH ×3 (10:13→16:35)
[2022-03-28] MEDS ORDERED: Iopamidol - 370 500 ML MLS IVP ONE (11:12)
[2022-03-28] MEDS: Budesonide/Formoterol 160/4.5 1 PUFF INH IH SCH (19:36)
[2022-03-28] MEDS: Gabapentin 300 MG CAPSULE PO SCH (19:59)
[2022-03-29 04:11] LABS: Hematocrit 33.5 % (37.5-50.1); Hemoglobin 10.3 g/dL (12.9-16.9); Mean Corpuscular HGB Conc 30.7 g/dL (31.6-35.5); Mean Corpuscular Hemoglobin 27.2 pg (28.0-33.3); Mean Corpuscular Volume 88.6 fL (83.0-100.0); Mean Platelet Volume 10.3 fL (9.4-12.4); Platelet Count 254 K/mcL (140-400); Red Blood Count 3.78 M/mcL (4.19-5.50); Red Cell Distribution Width 15.8 % (11.5-14.5); White Blood Count 7.9 K/mcL (4.3-11.1)
[2022-03-29 04:29] LABS: Calcium 9.5 mg/dL (8.6-10.3); Magnesium 1.7 mg/dL (1.6-2.6); Potassium 3.8 mEq/L (3.5-5.1)
[2022-03-29] MEDS: Budesonide/Formoterol 160/4.5 1 PUFF INH IH SCH ×2 (07:04→20:31)
[2022-03-29] MEDS: Insulin LISPRO 300 UNITS/3 ML VIAL SUBQ SCH ×3 (07:31→17:41)
[2022-03-29] MEDS: Ranolazine 500 MG TAB.ER.12H PO SCH ×2 (08:08→20:24)
[2022-03-29] MEDS: Isosorbide MONOnitrate (24 HR) 30 MG TAB.ER.24H PO SCH (08:08)
[2022-03-29] MEDS: amLODIPine 5 MG TABLET PO SCH (08:08)
[2022-03-29] MEDS: hydrALAZINE 25 MG TABLET PO SCH ×2 (08:08→17:40)
[2022-03-29 12:38] LABS: Urine Collection Volume 526 mL
[2022-03-29] MEDS: Furosemide 20 MG/2 ML VIAL IVP SCH (13:27)
[2022-03-29] MEDS ORDERED: Lidocaine -MPF 2% 5 ML VIAL ONE (13:39)
[2022-03-29] MEDS ORDERED: *HR* Propofol 200 MG/20 ML VIAL IVP ONE (13:39)
[2022-03-29] MEDS ORDERED: Ipratropium/Albuterol Neb 3 ML IH ONE (14:03)
[2022-03-29] MEDS ORDERED: *HR* Metoprolol 5 MG/5 ML VIAL IVP ONE (14:18)
[2022-03-29 14:53] LABS: Calcium 9.6 mg/dL (8.6-10.3); Potassium 3.6 mEq/L (3.5-5.1)
[2022-03-29 14:54] LABS: Troponin I 0.03 ng/mL (< 0.04)
[2022-03-29 15:56] LABS: Albumin 4.1 g/dL (3.5-5.7); Magnesium 1.6 mg/dL (1.6-2.6); Phosphorous 3.8 mg/dL (2.7-4.5)
[2022-03-29 18:26] LABS: Metanephrine, Plasma 0.21 nmol/L (0.00-0.49)
[2022-03-29] MEDS: Gabapentin 300 MG CAPSULE PO SCH (20:25)
[2022-03-30] MEDS: hydrALAZINE 25 MG TABLET PO SCH ×4 (00:13→21:57)
[2022-03-30 01:36] LABS: Hematocrit 32.1 % (37.5-50.1); Mean Corpuscular HGB Conc 31.2 g/dL (31.6-35.5); Mean Corpuscular Hemoglobin 27.8 pg (28.0-33.3); Mean Corpuscular Volume 89.2 fL (83.0-100.0); Mean Platelet Volume 10.2 fL (9.4-12.4); Platelet Count 219 K/mcL (140-400); Red Cell Distribution Width 15.7 % (11.5-14.5); White Blood Count 7.2 K/mcL (4.3-11.1)
[2022-03-30 01:41] LABS: Alpha 2 Globulin (PEP) 0.99 g/dL (0.48-1.05); Beta Globulin (PEP) 0.57 g/dL (0.48-1.10)
[2022-03-30 02:05] LABS: Calcium 9.3 mg/dL (8.6-10.3); Magnesium 1.7 mg/dL (1.6-2.6); Phosphorous 3.5 mg/dL (2.7-4.5); Potassium 3.7 mEq/L (3.5-5.1)
[2022-03-30] MEDS: Insulin LISPRO 300 UNITS/3 ML VIAL SUBQ SCH ×3 (07:08→16:24)
[2022-03-30] MEDS: Budesonide/Formoterol 160/4.5 1 PUFF INH IH SCH ×2 (07:38→20:07)
[2022-03-30 09:41] LABS: Immunoglobulin A 48 mg/dL (68-408); Immunoglobulin G 752 mg/dL (768-1632); Immunoglobulin M 16 mg/dL (35-263)
[2022-03-30 09:58] LABS: IFE Reflexed IFE Done
[2022-03-30] MEDS ORDERED: Ketamine *HR* 500 MG/10 ML MDV ONE (10:36)
[2022-03-30 10:39] LABS: RBC,Pleural Fluid 2000 RBC/mcL
[2022-03-30 10:44] LABS: RBC,Peritoneal Fluid 2000 RBC/mcL
[2022-03-30 10:47] LABS: Total Protein,Pleural Fluid 3.5 g/dL
[2022-03-30] MEDS ORDERED: *HR* Propofol 200 MG/20 ML VIAL IVP ONE (11:30)
[2022-03-30] MEDS ORDERED: *HR* Midazolam HCl 2 MG/2 ML VIAL ONE (11:35)
[2022-03-30] MEDS ORDERED: *HR* FentaNYL (PF) 100 MCG/2 ML VIAL ONE (11:40)
[2022-03-30 11:54] LABS: Basophils,Pleural Fluid 0 %; Eosinophils,Pleural Fluid 0 %
[2022-03-30] MEDS ORDERED: Ondansetron 4 MG/2 ML VIAL ONE (12:02)
[2022-03-30 12:06] LABS: Appearance of Pleural Fl Hazy (Clear)
[2022-03-30 12:20] LABS: Basophils,Peritoneal Fluid 0 %; Eosinophils,Peritoneal Fluid 0 %
[2022-03-30 12:22] LABS: Appearance of Peritoneal Fl HAZY (Clear)
[2022-03-30] MEDS: Isosorbide MONOnitrate (24 HR) 30 MG TAB.ER.24H PO SCH (12:49)
[2022-03-30] MEDS: amLODIPine 5 MG TABLET PO SCH (12:49)
[2022-03-30] MEDS: Furosemide 20 MG/2 ML VIAL IVP SCH (12:50)
[2022-03-30] MEDS: Ranolazine 500 MG TAB.ER.12H PO SCH ×2 (12:50→21:56)
[2022-03-30] MEDS: Gabapentin 300 MG CAPSULE PO SCH (21:57)
[2022-03-31 05:36] LABS: Basophils % 0.2 %; Eosinophils % 0.2 %; Hematocrit 31.4 % (37.5-50.1); Hemoglobin 9.8 g/dL (12.9-16.9); Immature Granulocytes % 1.2 % (0-4); Lymphocytes # 0.6 K/mcL (0.6-4.6); Lymphocytes % 6.8 %; Mean Corpuscular HGB Conc 31.2 g/dL (31.6-35.5); Mean Corpuscular Hemoglobin 27.9 pg (28.0-33.3); Mean Corpuscular Volume 89.5 fL (83.0-100.0); Mean Platelet Volume 10.6 fL (9.4-12.4); Monocytes # 0.8 K/mcL (0.0-1.3); Monocytes % 9.2 %; Neutrophils # 6.8 K/mcL (1.6-8.9); Platelet Count 192 K/mcL (140-400); Red Blood Count 3.51 M/mcL (4.19-5.50); Red Cell Distribution Width 15.8 % (11.5-14.5); Segmented Neutrophils % 82.4 %; White Blood Count 8.3 K/mcL (4.3-11.1)
[2022-03-31 05:50] LABS: Urine Collection Volume 526 mL
[2022-03-31 05:55] LABS: Calcium 8.8 mg/dL (8.6-10.3); Magnesium 1.9 mg/dL (1.6-2.6); Phosphorous 2.9 mg/dL (2.7-4.5)
[2022-03-31] MEDS: Budesonide/Formoterol 160/4.5 1 PUFF INH IH SCH ×2 (07:47→19:45)
[2022-03-31] MEDS: Insulin LISPRO 300 UNITS/3 ML VIAL SUBQ SCH ×3 (08:00→16:50)
[2022-03-31] MEDS: Ranolazine 500 MG TAB.ER.12H PO SCH ×2 (08:00→20:00)
[2022-03-31] MEDS: Isosorbide MONOnitrate (24 HR) 30 MG TAB.ER.24H PO SCH (08:00)
[2022-03-31] MEDS: amLODIPine 5 MG TABLET PO SCH (08:00)
[2022-03-31] MEDS: hydrALAZINE 25 MG TABLET PO SCH ×3 (08:01→20:00)
[2022-03-31] MEDS: Furosemide 20 MG/2 ML VIAL IVP SCH (08:01)
[2022-03-31] MEDS ORDERED: Furosemide 20 MG/2 ML VIAL IVP ONE (09:19)
[2022-03-31] MEDS: Gabapentin 300 MG CAPSULE PO SCH (20:00)
[2022-04-01 03:50] LABS: Fluid Source for Albumin PERITONEAL FL
[2022-04-01 03:50] LABS: Fluid Source for Albumin PLEURAL FL
[2022-04-01] MEDS ORDERED: Acetaminophen IV 500 MG/50 ML BAG IVPB ONE (05:20)
[2022-04-01] MEDS: Budesonide/Formoterol 160/4.5 1 PUFF INH IH SCH ×2 (07:32→20:24)
[2022-04-01 08:29] LABS: Eosinophils % 0.5 %; Hematocrit 29.4 % (37.5-50.1); Hemoglobin 8.9 g/dL (12.9-16.9); Lymphocytes # 0.6 K/mcL (0.6-4.6); Lymphocytes % 7.4 %; Mean Corpuscular HGB Conc 30.3 g/dL (31.6-35.5); Mean Corpuscular Hemoglobin 27.5 pg (28.0-33.3); Mean Corpuscular Volume 90.7 fL (83.0-100.0); Monocytes # 0.7 K/mcL (0.0-1.3); Monocytes % 8.8 %; Neutrophils # 6.4 K/mcL (1.6-8.9); Platelet Count 161 K/mcL (140-400); Red Blood Count 3.24 M/mcL (4.19-5.50); Red Cell Distribution Width 15.9 % (11.5-14.5); Segmented Neutrophils % 82.3 %; White Blood Count 7.7 K/mcL (4.3-11.1)
[2022-04-01 08:49] LABS: Calcium 7.9 mg/dL (8.6-10.3); Magnesium 1.6 mg/dL (1.6-2.6); Phosphorous 2.9 mg/dL (2.7-4.5); Potassium 3.7 mEq/L (3.5-5.1)
[2022-04-01] MEDS: Insulin LISPRO 300 UNITS/3 ML VIAL SUBQ SCH ×3 (08:51→16:38)
[2022-04-01] MEDS: hydrALAZINE 25 MG TABLET PO SCH ×3 (08:51→21:23)
[2022-04-01] MEDS: Ranolazine 500 MG TAB.ER.12H PO SCH ×2 (08:52→21:24)
[2022-04-01] MEDS: Isosorbide MONOnitrate (24 HR) 30 MG TAB.ER.24H PO SCH (08:52)
[2022-04-01] MEDS: Ergocalciferol (VIT D2) 50,000 UNIT (1.25MG) CAP PO SCH (08:53)
[2022-04-01] MEDS: amLODIPine 5 MG TABLET PO SCH (08:53)
[2022-04-01] MEDS: Furosemide 40 MG/4 ML VIAL IVP SCH (09:18)
[2022-04-01] MEDS: Gabapentin 300 MG CAPSULE PO SCH (21:24)
[2022-04-02] MEDS: Budesonide/Formoterol 160/4.5 1 PUFF INH IH SCH ×2 (07:34→19:50)
[2022-04-02 08:34] LABS: Basophils % 0.3 %; Eosinophils % 0.6 %; Hematocrit 30.5 % (37.5-50.1); Hemoglobin 9.5 g/dL (12.9-16.9); Immature Granulocytes % 1.3 % (0-4); Lymphocytes # 0.5 K/mcL (0.6-4.6); Lymphocytes % 6.7 %; Mean Corpuscular HGB Conc 31.1 g/dL (31.6-35.5); Mean Corpuscular Hemoglobin 27.7 pg (28.0-33.3); Mean Corpuscular Volume 88.9 fL (83.0-100.0); Mean Platelet Volume 10.7 fL (9.4-12.4); Monocytes # 0.6 K/mcL (0.0-1.3); Monocytes % 8.5 %; Neutrophils # 5.8 K/mcL (1.6-8.9); Platelet Count 168 K/mcL (140-400); Red Blood Count 3.43 M/mcL (4.19-5.50); Red Cell Distribution Width 15.9 % (11.5-14.5); Segmented Neutrophils % 82.6 %
[2022-04-02 08:50] LABS: Calcium 8.6 mg/dL (8.6-10.3); Magnesium 1.8 mg/dL (1.6-2.6); Phosphorous 3.1 mg/dL (2.7-4.5); Potassium 4.3 mEq/L (3.5-5.1)
[2022-04-02] MEDS: Insulin LISPRO 300 UNITS/3 ML VIAL SUBQ SCH ×3 (09:03→17:20)
[2022-04-02] MEDS: hydrALAZINE 25 MG TABLET PO SCH ×3 (09:15→20:10)
[2022-04-02] MEDS: amLODIPine 5 MG TABLET PO SCH (09:16)
[2022-04-02] MEDS: Ranolazine 500 MG TAB.ER.12H PO SCH ×2 (09:16→20:10)
[2022-04-02] MEDS: Isosorbide MONOnitrate (24 HR) 30 MG TAB.ER.24H PO SCH (09:16)
[2022-04-02] MEDS: Furosemide 40 MG/4 ML VIAL IVP SCH (09:16)
[2022-04-02] MEDS: Gabapentin 300 MG CAPSULE PO SCH (20:11)
[2022-04-03] MEDS ORDERED: Morphine Sulfate 2 MG/ML SYRINGE IVP ONE (04:46)
[2022-04-03 05:22] LABS: Basophils % 0.3 %; Eosinophils % 0.6 %; Hematocrit 30.2 % (37.5-50.1); Hemoglobin 9.4 g/dL (12.9-16.9); Immature Granulocytes % 1.4 % (0-4); Lymphocytes # 0.5 K/mcL (0.6-4.6); Lymphocytes % 7.1 %; Mean Corpuscular HGB Conc 31.1 g/dL (31.6-35.5); Mean Corpuscular Hemoglobin 27.8 pg (28.0-33.3); Mean Corpuscular Volume 89.3 fL (83.0-100.0); Mean Platelet Volume 11.1 fL (9.4-12.4); Monocytes # 0.7 K/mcL (0.0-1.3); Monocytes % 9.5 %; Neutrophils # 5.7 K/mcL (1.6-8.9); Platelet Count 180 K/mcL (140-400); Red Blood Count 3.38 M/mcL (4.19-5.50); Segmented Neutrophils % 81.1 %; White Blood Count 7.1 K/mcL (4.3-11.1)
[2022-04-03 05:41] LABS: Calcium 8.9 mg/dL (8.6-10.3); Potassium 4.3 mEq/L (3.5-5.1)
[2022-04-03] MEDS: Insulin LISPRO 300 UNITS/3 ML VIAL SUBQ SCH ×3 (07:36→16:30)
[2022-04-03] MEDS: Budesonide/Formoterol 160/4.5 1 PUFF INH IH SCH ×2 (07:52→19:50)
[2022-04-03 08:22] LABS: Urine Creatinine mg/d 710 mg/d (800-2100)
[2022-04-03] MEDS ORDERED: Furosemide 40 MG TABLET PO SCH (09:00)
[2022-04-03] MEDS: Isosorbide MONOnitrate (24 HR) 30 MG TAB.ER.24H PO SCH (09:20)
[2022-04-03] MEDS: amLODIPine 5 MG TABLET PO SCH (09:20)
[2022-04-03] MEDS: Ranolazine 500 MG TAB.ER.12H PO SCH ×2 (09:21→21:32)
[2022-04-03] MEDS: hydrALAZINE 25 MG TABLET PO SCH ×3 (09:21→21:32)
[2022-04-03] MEDS: Albumin 25% 25gram/100mL 25 GM/100 ML IV.SOLN IVPB SCH ×2 (11:34→19:53)
[2022-04-03] MEDS: Sennosides 8.6 MG TABLET PO SCH (17:11)
[2022-04-03] MEDS: Gabapentin 300 MG CAPSULE PO SCH (22:16)
[2022-04-04] MEDS: Albumin 25% 25gram/100mL 25 GM/100 ML IV.SOLN IVPB SCH ×3 (04:35→21:22)
[2022-04-04 05:04] LABS: Basophils % 0.1 %; Eosinophils % 0.6 %; Hematocrit 28.2 % (37.5-50.1); Hemoglobin 8.8 g/dL (12.9-16.9); Immature Granulocytes % 0.8 % (0-4); Lymphocytes # 0.5 K/mcL (0.6-4.6); Mean Corpuscular HGB Conc 31.2 g/dL (31.6-35.5); Mean Corpuscular Hemoglobin 28.1 pg (28.0-33.3); Mean Corpuscular Volume 90.1 fL (83.0-100.0); Mean Platelet Volume 11.1 fL (9.4-12.4); Monocytes # 0.6 K/mcL (0.0-1.3); Neutrophils # 5.9 K/mcL (1.6-8.9); Platelet Count 158 K/mcL (140-400); Red Blood Count 3.13 M/mcL (4.19-5.50); Segmented Neutrophils % 82.5 %; White Blood Count 7.1 K/mcL (4.3-11.1)
[2022-04-04 05:29] LABS: Calcium 8.6 mg/dL (8.6-10.3); Potassium 4.6 mEq/L (3.5-5.1)
[2022-04-04] MEDS: Budesonide/Formoterol 160/4.5 1 PUFF INH IH SCH ×2 (07:18→19:54)
[2022-04-04] MEDS: Insulin LISPRO 300 UNITS/3 ML VIAL SUBQ SCH ×3 (07:29→16:16)
[2022-04-04] MEDS: Isosorbide MONOnitrate (24 HR) 30 MG TAB.ER.24H PO SCH (09:22)
[2022-04-04] MEDS: Sennosides 8.6 MG TABLET PO SCH ×2 (09:22→21:22)
[2022-04-04] MEDS: Ranolazine 500 MG TAB.ER.12H PO SCH ×2 (09:22→21:22)
[2022-04-04] MEDS: hydrALAZINE 25 MG TABLET PO SCH ×3 (09:22→21:22)
[2022-04-04] MEDS: amLODIPine 5 MG TABLET PO SCH (09:23)
[2022-04-04] MEDS: Gabapentin 300 MG CAPSULE PO SCH (21:22)
[2022-04-05 04:16] LABS: Basophils % 0.1 %; Eosinophils % 0.4 %; Hematocrit 27.4 % (37.5-50.1); Hemoglobin 8.5 g/dL (12.9-16.9); Immature Granulocytes % 1.1 % (0-4); Lymphocytes # 0.4 K/mcL (0.6-4.6); Lymphocytes % 5.9 %; Mean Corpuscular Hemoglobin 27.7 pg (28.0-33.3); Mean Corpuscular Volume 89.3 fL (83.0-100.0); Mean Platelet Volume 10.9 fL (9.4-12.4); Monocytes # 0.6 K/mcL (0.0-1.3); Monocytes % 8.3 %; Neutrophils # 6.2 K/mcL (1.6-8.9); Platelet Count 173 K/mcL (140-400); Red Blood Count 3.07 M/mcL (4.19-5.50); Segmented Neutrophils % 84.2 %; White Blood Count 7.3 K/mcL (4.3-11.1)
[2022-04-05 04:40] LABS: Calcium 8.8 mg/dL (8.6-10.3); Magnesium 1.9 mg/dL (1.6-2.6); Potassium 4.3 mEq/L (3.5-5.1)
[2022-04-05] MEDS: Albumin 25% 25gram/100mL 25 GM/100 ML IV.SOLN IVPB SCH (06:44)
[2022-04-05] MEDS ORDERED: 0.9 % Sodium Chloride 250 ML IVC PRN (07:29)
[2022-04-05] MEDS ORDERED: 0.9 % Sodium Chloride 2,000 ML PRIME SCH (07:30)
[2022-04-05] MEDS: Budesonide/Formoterol 160/4.5 1 PUFF INH IH SCH ×2 (07:36→19:57)
[2022-04-05] MEDS: Insulin LISPRO 300 UNITS/3 ML VIAL SUBQ SCH ×3 (08:01→16:22)
[2022-04-05] MEDS: Isosorbide MONOnitrate (24 HR) 30 MG TAB.ER.24H PO SCH (08:06)
[2022-04-05] MEDS: Ranolazine 500 MG TAB.ER.12H PO SCH ×2 (08:06→21:28)
[2022-04-05] MEDS: Sennosides 8.6 MG TABLET PO SCH ×2 (08:06→21:28)
[2022-04-05] MEDS: amLODIPine 5 MG TABLET PO SCH (10:05)
[2022-04-05] MEDS: hydrALAZINE 25 MG TABLET PO SCH ×3 (10:05→21:28)
[2022-04-05] MEDS ORDERED: Bisacodyl 10 MG RECTAL SUPPOSITORY RC ONE (12:47)
[2022-04-05] MEDS ORDERED: *HR* HYDROmorphone (PF) 1 MG/ML SYRINGE IVP PRN (13:14)
[2022-04-05] MEDS: Ondansetron 4 MG/2 ML VIAL IVP PRN (15:02)
[2022-04-05] MEDS: *HR* LORazepam 0.5 MG TABLET PO PRN (15:02)
[2022-04-05] MEDS ORDERED: *HR* Heparin 10,000 UNIT/10 ML VIAL IV PRN (16:15)
[2022-04-05] MEDS: Gabapentin 300 MG CAPSULE PO SCH (21:28)
[2022-04-06 06:22] LABS: Basophils % 0.1 %; Hematocrit 28.6 % (37.5-50.1); Immature Granulocytes % 0.6 % (0-4); Lymphocytes # 0.3 K/mcL (0.6-4.6); Lymphocytes % 3.6 %; Mean Corpuscular HGB Conc 31.5 g/dL (31.6-35.5); Mean Corpuscular Volume 89.1 fL (83.0-100.0); Mean Platelet Volume 11.6 fL (9.4-12.4); Monocytes # 0.6 K/mcL (0.0-1.3); Monocytes % 6.8 %; Neutrophils # 8.3 K/mcL (1.6-8.9); Platelet Count 185 K/mcL (140-400); Red Blood Count 3.21 M/mcL (4.19-5.50); Red Cell Distribution Width 16.2 % (11.5-14.5); Segmented Neutrophils % 88.9 %; White Blood Count 9.4 K/mcL (4.3-11.1)
[2022-04-06 06:42] LABS: Calcium 8.9 mg/dL (8.6-10.3); Magnesium 1.9 mg/dL (1.6-2.6); Potassium 4.7 mEq/L (3.5-5.1)
[2022-04-06] MEDS: Budesonide/Formoterol 160/4.5 1 PUFF INH IH SCH ×2 (07:31→20:39)
[2022-04-06] MEDS: Isosorbide MONOnitrate (24 HR) 30 MG TAB.ER.24H PO SCH (11:21)
[2022-04-06] MEDS: amLODIPine 5 MG TABLET PO SCH (11:21)
[2022-04-06] MEDS: Ranolazine 500 MG TAB.ER.12H PO SCH ×2 (11:22→20:43)
[2022-04-06] MEDS: Sennosides 8.6 MG TABLET PO SCH ×2 (11:22→20:43)
[2022-04-06] MEDS: hydrALAZINE 25 MG TABLET PO SCH ×3 (11:22→20:46)
[2022-04-06] MEDS: Insulin LISPRO 300 UNITS/3 ML VIAL SUBQ SCH ×3 (11:24→17:26)
[2022-04-06 12:11] LABS: INR 1.5; Prothrombin Time 16.2 Seconds (9.4-12.1)
[2022-04-06] MEDS: Gabapentin 300 MG CAPSULE PO SCH (20:42)
[2022-04-06] MEDS: *HR* OxyCODONE Immed Rel 5 MG TABLET PO PRN (20:43)
[2022-04-07] MEDS: *HR* OxyCODONE Immed Rel 5 MG TABLET PO PRN ×3 (04:24→17:31)
[2022-04-07] MEDS: Insulin LISPRO 300 UNITS/3 ML VIAL SUBQ SCH ×3 (07:48→17:09)
[2022-04-07] MEDS: Budesonide/Formoterol 160/4.5 1 PUFF INH IH SCH (07:54)
[2022-04-07] MEDS: Ranolazine 500 MG TAB.ER.12H PO SCH (08:50)
[2022-04-07] MEDS: hydrALAZINE 25 MG TABLET PO SCH ×2 (08:50→17:09)
[2022-04-07] MEDS: amLODIPine 5 MG TABLET PO SCH (08:50)
[2022-04-07] MEDS: Isosorbide MONOnitrate (24 HR) 30 MG TAB.ER.24H PO SCH (08:50)
[2022-04-07] MEDS: Sennosides 8.6 MG TABLET PO SCH (08:50)
[2022-04-07 10:56] VITALS: BP 110/68; PULSE 82; TEMP 97.5; O2SAT 90
[2022-04-07] MEDS: *HR* LORazepam 0.5 MG TABLET PO PRN (17:31)
== END 2022-04-07 18:12 | disposition hospice, home (50) | DRG 659 ==
LOC: 2ANU → SUATTDRO 22:38 → 2ANU 04-03 17:40
PROVIDERS: ADMIT Internal Medicine; ATTEND Internal Medicine
PROC: ENDOEBX (2022-03-30 08:45)